=== PATIENT | female | born 1970 | race American Indian/Alaskan Native ===

== ENCOUNTER 2016-06-21 15:33 | Emergency (ER) | payer MEDICAID ==
[2016-06-21 15:54] VITALS: PULSE 61; RESP 18; TEMP 98.1; O2SAT 99
[2016-06-21 15:56] VITALS: BP 91/67
--- NOTE | 2016-06-21 17:15 | C.PDOC ---
History Of Present Illness 45-year-old female presents to the emergency department with complaints of right knee pain and swelling for the past several days. Pain radiates to lower leg. Patient has a Hx of chronic back pain and left knee pain w/ Hx of meniscal injury and DVT. Pt currently has IVC filter, but states she is not taking any blood thinners. Time Seen by Provider: 06/21/16 16:47 Chief Complaint (Nursing): Lower Extremity Problem/Injury History Per: Patient History/Exam Limitations: no limitations Current Symptoms Are (Timing): Still Present Severity: Moderate Past Medical History Reviewed: Historical Data, Nursing Documentation, Vital Signs Vital Signs: Last Vital Signs Temp 98.1 F 06/21/16 15:53 Pulse 61 06/21/16 15:53 Resp 18 06/21/16 15:53 BP 91/67 L 06/21/16 15:53 Pulse Ox 99 06/21/16 18:50 - Medical History PMH: Anemia, Deep Vein Thrombosis (left leg) Surgical History: Tonsillectomy - [facility] Procedures CYSTOSCOPY NEC (11/28/13) DESTRUCT PERITONEAL TISS (11/21/13) OTH REMOVE BOTH OVARIES/TUBES (11/21/13) OTHER AND UNSPECIFIED TOTAL ABDOMINAL HYSTERECTOMY (11/21/13) PACKED CELL TRANSFUSION (03/05/13) PLICATION OF VENA CAVA (03/05/13) REMOV URETERAL DRAIN (11/28/13) RETROGRADE PYELOGRAM (11/19/13) URETERAL CATHETERIZATION (11/19/13) Family History: States: No Known Family Hx - Social History Hx Alcohol Use: No Hx Substance Use: No - Immunization History Hx Tetanus Toxoid Vaccination: No Hx Influenza Vaccination: No Hx Pneumococcal Vaccination: No Review Of Systems Except As Marked, All Systems Reviewed And Found Negative. Constitutional: Negative for: Fever, Chills Cardiovascular: Negative for: Chest Pain Respiratory: Negative for: Shortness of Breath Gastrointestinal: Negative for: Nausea, Vomiting Musculoskeletal: Positive for: Other (knee pain) Skin: Negative for: Rash Neurological: Negative for: Weakness, Numbness Physical Exam - Physical Exam Appears: Well, Non-toxic, No Acute Distress Skin: Warm, Dry, No Rash Head: Normacephalic Eye(s): bilateral: Normal Inspection Oral Mucosa: Moist Neck: Normal, Normal ROM Cardiovascular: Rhythm Regular Respiratory: Normal Breath Sounds, No Rales, No Rhonchi, No Wheezing Extremity: No Calf Tenderness, Capillary Refill (< 2 sec all digits ), No Deformity, Other (Left Knee: (+)knee brace, Mild tenderness to palpation around patellar area. No swelling. No erythema. No warmth. No calf tenderness. ) Pulses: Left Dorsalis Pedis: Normal, Right Dorsalis Pedis: Normal Neurological/Psych: Oriented x3, Normal Sensation ED Course And Treatment O2 Sat by Pulse Oximetry: 99 (RA) Pulse Ox Interpretation: Normal Progress Note: Venous doppler no longer available at this time. Patient given 1 dose SC Lovenox and instructed to return in AM for venous doppler. Disposition Counseled Patient/Family Regarding: Studies Performed, Diagnosis, Need For Followup - Disposition Referrals: [facility] [Outside] Disposition: HOME/ ROUTINE Disposition Time: 17:40 Condition: STABLE Additional Instructions: RETURN TOMORROW FOR VENOUS DOPPLER (ULTRASOUND) OF RIGHT LEG Instructions: Knee Pain (ED) Print Language: TURKMEN - POA Present On Arrival: None - Clinical Impression Clinical Impression: Right knee pain - Scribe Statement The provider has reviewed the documentation as recorded by the Geo Newell All medical record entries made by the Siminibprosper were at my direction and personally dictated by me. I have reviewed the chart and agree that the record accurately reflects my personal performance of the history, physical exam, medical decision making, and the department course for this patient. I have also personally directed, reviewed, and agree with the discharge instructions and disposition.
[2016-06-21] MEDS ORDERED: Enoxaparin 80 mg Syringe SC STA (17:40)
[2016-06-21] MEDS ORDERED: Enoxaparin 60 mg Syringe ONE (17:51)
[2016-06-21] MEDS ORDERED: Enoxaparin 30 mg Syringe ONE (17:51)
== END 2016-06-21 18:17 | disposition home or self-care (01) ==
LOC: C.ER 15:33
DX: M25.561 Pain in right knee (principal)

== ENCOUNTER 2016-06-22 14:42 | Emergency (ER) | payer MEDICARE, MEDICAID ==
--- NOTE | 2016-06-22 15:41 | C.PDOC ---
History Of Present Illness 45 y/o F c PMHx DVT LLE s/p IVC filter p/w R leg swelling and pain mostly around the knee. Was seen and evaluated in this ER yesterday for same but arrived after doppler department closed. Given dose of lovenox and instructed to return to the ER today for doppler. Denies chest pain, dyspnea, fever. Time Seen by Provider: 06/22/16 15:31 Chief Complaint (Nursing): Lower Extremity Problem/Injury History Per: Patient History/Exam Limitations: no limitations Onset/Duration Of Symptoms: Days Current Symptoms Are (Timing): Still Present Past Medical History Reviewed: Historical Data, Nursing Documentation, Vital Signs Vital Signs: Last Vital Signs Temp 97.8 F 06/22/16 15:10 Pulse 66 06/22/16 15:10 Resp 18 06/22/16 15:10 BP 104/70 06/22/16 15:10 Pulse Ox 99 06/22/16 16:06 - Medical History PMH: Anemia, Deep Vein Thrombosis (left leg) Surgical History: Tonsillectomy - [facility] Procedures CYSTOSCOPY NEC (11/28/13) DESTRUCT PERITONEAL TISS (11/21/13) OTH REMOVE BOTH OVARIES/TUBES (11/21/13) OTHER AND UNSPECIFIED TOTAL ABDOMINAL HYSTERECTOMY (11/21/13) PACKED CELL TRANSFUSION (03/05/13) PLICATION OF VENA CAVA (03/05/13) REMOV URETERAL DRAIN (11/28/13) RETROGRADE PYELOGRAM (11/19/13) URETERAL CATHETERIZATION (11/19/13) Family History: States: No Known Family Hx - Social History Hx Alcohol Use: No Hx Substance Use: No - Immunization History Hx Tetanus Toxoid Vaccination: No Hx Influenza Vaccination: No Hx Pneumococcal Vaccination: No Review Of Systems Except As Marked, All Systems Reviewed And Found Negative. Constitutional: Negative for: Fever Cardiovascular: Negative for: Chest Pain Respiratory: Negative for: Shortness of Breath Physical Exam - Physical Exam Additional Physical Exam Comments: Constitutional: No acute distress. Head: Normocephalic. Atraumatic. Eyes: PERRL. ENT: Moist mucous membranes. Neck: Supple. Cardiovascular: Regular rate. Radial pulses 2+ bilaterally. Chest: No tenderness. Respiratory: Clear to auscultation bilaterally. GI: Soft. Nontender. Nondistended. Back: No CVA tenderness. Musculoskeletal: No tenderness of extremities. Swelling of R leg, mostly about R knee. No calf tenderness. Skin: No rash. Neurologic: Alert, no focal deficit. ED Course And Treatment O2 Sat by Pulse Oximetry: 99 Medical Decision Making Medical Decision Making: PLAN: * Doppler - Lower Extremity negative for DVT. F/u PMD, ortho for knee pain, return to ER for chest pain, dyspnea, fever. Disposition - Disposition Referrals: [facility] [Outside] Disposition: HOME/ ROUTINE Disposition Time: 16:30 Condition: STABLE Additional Instructions: Your venous doppler did NOT show a clot. Please follow up with your primary physician for your knee pain. Instructions: Knee Pain (ED) - Clinical Impression Clinical Impression: Knee pain - Scribe Statement The provider has reviewed the documentation as recorded by the Siminibprosper Webber Provider Attestation: All medical record entries made by the Siminibprosper were at my direction and personally dictated by me. I have reviewed the chart and agree that the record accurately reflects my personal performance of the history, physical exam, medical decision making, and the department course for this patient. I have also personally directed, reviewed, and agree with the discharge instructions and disposition.
[2016-06-22 16:55] VITALS: BP 108/63; PULSE 70; RESP 20; TEMP 98.3; O2SAT 100
--- NOTE | 2016-06-23 09:48 | VASCLAB ---
PROCEDURE: Right Lower Extremity Venous Duplex Exam. HISTORY: Right leg pain and swelling PRIORS: Last exam 10/07/2015,negative. TECHNIQUE: Right common femoral, femoral, popliteal and posterior tibial, peroneal and great saphenous veins were evaluated. Flow was assessed with color Doppler, compressibility, assessment of phasic flow and augmentation response. Report prepared by TAHIR Ernst FINDINGS: RIGHT: 1. Common Femoral Vein: 1.1. Compressibility - Fully compressible: Thrombus - None: Flow - Phasic: Augmentation -Normal: Reflux - None. 2. Femoral Vein: 2.1. Compressibility - Fully compressible: Thrombus - None: Flow - Phasic: Augmentation -Normal: Reflux - None. 3. Popliteal Vein: 3.1. Compressibility - Fully compressible: Thrombus - None: Flow - Phasic: Augmentation -Normal: Reflux - None. 4. Posterior Tibial Vein: 4.1. Compressibility - Fully compressible: Thrombus - None: Flow - Phasic: Augmentation -Normal: Reflux - None. 5. Peroneal Vein: 5.1. Compressibility - Fully compressible: Thrombus - None: Flow - Phasic: Augmentation -Normal: Reflux - None. 6. Great Saphenous Vein: 6.1. Compressibility - Fully compressible: Thrombus -None: Flow - Phasic: Augmentation - Normal: Reflux - None. OTHER FINDINGS: IMPRESSION: No evidence of deep or superficial vein thrombosis of the right lower extremity with excellent venous flow. Normal valve function noted of the right side. Normal venous flow noted in the left common femoral vein.
== END 2016-06-22 16:55 | disposition home or self-care (01) ==
LOC: C.ER 14:42
DX: M25.561 Pain in right knee (principal)

== ENCOUNTER 2016-07-06 14:42 | Emergency (ER) | payer MEDICAID ==
[2016-07-06 15:07] VITALS: RESP 18; O2SAT 99
[2016-07-06] MEDS ORDERED: Sodium Chloride 0.9% 1,000 ML IV ONE (15:42)
[2016-07-06 16:15] LABS: RBC URINE < 1 /hpf (0-3); URINE BILIRUBIN NEGATIVE (NEGATIVE); URINE BLOOD NEGATIVE (NEGATIVE); URINE CALCIUM OXALATE CRYSTALS OCC /hpf (<OCC); URINE COLOR Yellow (YELLOW); URINE GLUCOSE (UA) NORMAL (Normal); URINE HYALINE CAST 0-2 /lpf (0-2); URINE KETONE NEGATIVE (NEGATIVE); URINE LEUKOCYTE ESTERASE NEG Leu/uL (Negative); URINE PROTEIN NEGATIVE (NEGATIVE); URINE UROBILINOGEN NORMAL mg/dL (0.2-1.0); WBC URINE 1 /hpf (0-5)
[2016-07-06 16:18] LABS: BASO % 0.2 % (0.0-2.0); EOS % 0.5 % (0.0-4.0); HEMATOCRIT 35.4 % (34.0-47.0); LYMPH # 0.6 K/uL (1.0-4.3); LYMPH % 9.8 % (20.0-40.0); MEAN CELL VOLUME 89.5 fL (81.0-99.0); MEAN CORPUSCULAR HEMOGLOBIN 28.3 pg (27.0-31.0); MEAN CORPUSCULAR HGB CONC 31.6 g/dL (33.0-37.0); MEAN PLATELET VOLUME 12.1 fL (7.2-11.7); MONO # 0.3 K/uL (0.0-0.8); MONO % 3.9 % (0.0-10.0); PLATELET COUNT 148 K/uL (130-400); RED CELL DISTRIBUTION WIDTH 14.2 % (11.5-14.5); WHITE BLOOD COUNT 6.5 K/uL (4.8-10.8)
[2016-07-06 16:20] LABS: CHLORIDE 104 mmol/L (98-107)
[2016-07-06 16:21] LABS: POTASSIUM 3.9 mmol/L (3.6-5.2); SODIUM 141 mmol/L (132-148)
[2016-07-06] MEDS ORDERED: Sodium Chloride 0.9% 1,000 ML ONE (16:22)
[2016-07-06 16:23] LABS: ALB/GLOB RATIO 1.1 (1.0-2.1); ALKALINE PHOSPHATASE 55 U/L (38-126); AST/SGOT 18 U/L (14-36); BILIRUBIN,TOTAL 0.3 mg/dL (0.2-1.3); BLOOD UREA NITROGEN 11 mg/dL (7-17); CARBON DIOXIDE 23 mmol/L (22-30); GFR AFRICAN-AMERICAN > 60; TOTAL PROTEIN 7.8 g/dL (6.3-8.3)
[2016-07-06 16:24] LABS: ALT/SGPT 18 U/L (9-52); CALCIUM 9.6 mg/dl (8.6-10.4); GLUCOSE,RANDOM 87 mg/dL (65-105)
--- NOTE | 2016-07-06 16:35 | C.PDOC ---
History Of Present Illness 46 year old female presents to the ED with complaints of epigastric pain, nausea , and vomiting since this morning. She denies fever, chest pain, SOB, diarrhea , dysuria/hematuria, vaginal bleeding/discharge. Patient also denies unusual food intake or sick contacts. Time Seen by Provider: 07/06/16 15:15 Chief Complaint (Nursing): Abdominal Pain History Per: Patient History/Exam Limitations: no limitations Onset/Duration Of Symptoms: Hrs Current Symptoms Are (Timing): Still Present Severity: Mild Location Of Pain/Discomfort: Epigastric Radiation Of Pain To:: None Quality Of Discomfort: "Pain" Associated Symptoms: Nausea, Vomiting. denies: Fever, Chills, Diarrhea, Back Pain Abnormal Vaginal Bleeding: No Past Medical History Reviewed: Historical Data, Nursing Documentation, Vital Signs Vital Signs: Last Vital Signs Temp 98.6 F 07/06/16 17:58 Pulse 66 07/06/16 17:58 Resp 18 07/06/16 17:58 BP 109/71 07/06/16 17:58 Pulse Ox 99 07/06/16 17:58 - Medical History PMH: Anemia, Deep Vein Thrombosis (left leg) Surgical History: Tonsillectomy - [facility] Procedures CYSTOSCOPY NEC (11/28/13) DESTRUCT PERITONEAL TISS (11/21/13) OTH REMOVE BOTH OVARIES/TUBES (11/21/13) OTHER AND UNSPECIFIED TOTAL ABDOMINAL HYSTERECTOMY (11/21/13) PACKED CELL TRANSFUSION (03/05/13) PLICATION OF VENA CAVA (03/05/13) REMOV URETERAL DRAIN (11/28/13) RETROGRADE PYELOGRAM (11/19/13) URETERAL CATHETERIZATION (11/19/13) Family History: States: No Known Family Hx - Social History Hx Alcohol Use: No Hx Substance Use: No - Immunization History Hx Tetanus Toxoid Vaccination: No Hx Influenza Vaccination: No Hx Pneumococcal Vaccination: No Review Of Systems Except As Marked, All Systems Reviewed And Found Negative. Constitutional: Negative for: Fever, Chills Cardiovascular: Negative for: Chest Pain, Palpitations Respiratory: Negative for: Cough, Shortness of Breath Gastrointestinal: Positive for: Nausea, Vomiting, Abdominal Pain. Negative for : Diarrhea Genitourinary: Negative for: Dysuria, Hematuria, Vaginal Discharge, Vaginal Bleeding Musculoskeletal: Negative for: Back Pain Physical Exam - Physical Exam Appears: Well, Non-toxic, No Acute Distress Skin: Normal Color, Warm, Dry Head: Normacephalic Eye(s): bilateral: Normal Inspection Oral Mucosa: Moist Cardiovascular: Rhythm Regular Respiratory: Normal Breath Sounds, No Accessory Muscle Use, No Rales, No Rhonchi , No Wheezing Gastrointestinal/Abdominal: Normal Exam, Bowel Sounds, Soft, No Tenderness, No Distention, No Guarding, No Rebound Back: No CVA Tenderness Extremity: Normal ROM, No Deformity Neurological/Psych: Oriented x3 ED Course And Treatment - Laboratory Results Result Diagrams: 07/06/16 16:07 07/06/16 16:07 O2 Sat by Pulse Oximetry: 99 (Room air) Pulse Ox Interpretation: Normal Progress Note: Blood work, UA, Upreg ordered and reviewed. Patient given IV NS bolus, IV pepcid and IV zofran. Reevaluation Time: 17:40 Reassessment Condition: Improved (On reassessment, patient is resting comfortably and states she is feeling better. On exam, abdomen is soft and nontender. Patient comfortable being discharged home, was given Rxs for zofran ODT and protonix. Patient instructed to follow up with PMD in 1-2 days, and with GI within 1 week. She understands she should return to ED if symptoms worsen.) Disposition Counseled Patient/Family Regarding: Studies Performed, Diagnosis, Need For Followup, Rx Given - Disposition Referrals: [facility] [Outside] Chelly Gayle MD [Staff Provider] - [facility] [Outside] Disposition: HOME/ ROUTINE Disposition Time: 17:40 Condition: STABLE Additional Instructions: FOLLOW UP WITH GI SPECIALIST WITHIN 1 WEEK USE PROTONIX EVERY DAY, AND ZOFRAN NEEDED FOR NAUSEA RETURN TO ER IF SYMPTOMS WORSEN AVOID SPICY, ACIDIC FOODS Prescriptions: Pantoprazole [Protonix EC Tab] 20 mg PO DAILY #30 ect Ondansetron [Zofran Odt] 4 mg PO Q8 PRN #10 odt PRN Reason: Nausea/Vomiting Instructions: Epigastric Pain (ED), Acute Nausea and Vomiting (ED) Print Language: URDU - Clinical Impression Clinical Impression: Nausea, Vomiting, Epigastric abdominal pain, Dyspepsia - Scribe Statement The provider has reviewed the documentation as recorded by the Scribe Doris Rocha. Provider Attestation: All medical record entries made by the Scribe were at my direction and personally dictated by me. I have reviewed the chart and agree that the record accurately reflects my personal performance of the history, physical exam, medical decision making, and the department course for this patient. I have also personally directed, reviewed, and agree with the discharge instructions and disposition.
[2016-07-06 17:59] VITALS: BP 109/71; PULSE 66; TEMP 98.6
[2016-07-06 18:25] LABS: NEUTROPHIL 85 % (50-75); TOTAL CELLS COUNTED 100
[2016-07-06 18:26] LABS: LARGE PLATELETS PRESENT; SMUDGE CELLS PRESENT
== END 2016-07-06 17:55 | disposition home or self-care (01) ==
LOC: C.ER 14:42
DX: R10.13 Epigastric pain (principal); R11.2 Nausea with vomiting, unspecified
CPT/HCPCS: 80053; 81001; 83690; 84703; 85025; 96361; 96374; 96375; 99284; J2405; J7040

== ENCOUNTER 2016-07-20 14:43 | Emergency (ER) | payer MEDICAID ==
[2016-07-20 15:02] VITALS: RESP 18; O2SAT 100
--- NOTE | 2016-07-20 15:54 | C.PDOC ---
History Of Present Illness Pt is a 46 year old female presents to the ER c/o wanting to remove a IVC filter placed in 2012. Patient states that since February of 2013 (after IVC filter placed) she has been having lower back pain, lower abdominal pain, loss of appetite, and vomiting. Patient notes pain is worse with movement. Patient states "Dr. Casillas won't take it out, someone has to take the IVC filter out" . Patient denies , fever, chills, nausea, trauma, dysuria, hematuria vaginal bleeding or discharge, or any other complaints. No chest pain and no SOB. Prior to IVC filter placement, the pt had been taking PO blood thinners but notes not being able to take it because of loss of appetite. Pt states that she has not contacted Dr. Casillas this year for her symptoms. On once occasion, she had an appointment to have the IVC filtered removed by Dr. Casillas, but she did not show up to her scheduled appointment (because of a transportation issues)--so the procedure was not done at that time. Time Seen by Provider: 07/20/16 15:11 Chief Complaint (Nursing): Abdominal Pain History Per: Patient History/Exam Limitations: no limitations Onset/Duration Of Symptoms: Days Current Symptoms Are (Timing): Still Present Severity: Mild Location Of Pain/Discomfort: RLQ, LLQ Associated Symptoms: Vomiting, Loss Of Appetite. denies: Fever, Chills, Nausea , Urinary Symptoms Recent travel outside of the [place]: No Additional History Per: Patient Past Medical History Reviewed: Historical Data, Nursing Documentation, Vital Signs Vital Signs: Last Vital Signs Temp 98.7 F 07/20/16 14:58 Pulse 96 H 07/20/16 14:58 Resp 18 07/20/16 14:58 BP 109/78 07/20/16 14:58 Pulse Ox 100 07/20/16 17:59 - Medical History PMH: Anemia, Deep Vein Thrombosis (left leg) Surgical History: Tonsillectomy - [facility] Procedures CYSTOSCOPY NEC (11/28/13) DESTRUCT PERITONEAL TISS (11/21/13) OTH REMOVE BOTH OVARIES/TUBES (11/21/13) OTHER AND UNSPECIFIED TOTAL ABDOMINAL HYSTERECTOMY (11/21/13) PACKED CELL TRANSFUSION (03/05/13) PLICATION OF VENA CAVA (03/05/13) REMOV URETERAL DRAIN (11/28/13) RETROGRADE PYELOGRAM (11/19/13) URETERAL CATHETERIZATION (11/19/13) Family History: States: Diabetes - Social History Hx Tobacco Use: No Hx Alcohol Use: No Hx Substance Use: No - Immunization History Hx Tetanus Toxoid Vaccination: No Hx Influenza Vaccination: No Hx Pneumococcal Vaccination: No Review Of Systems Except As Marked, All Systems Reviewed And Found Negative. Constitutional: Negative for: Fever, Chills, Other (Trauma) Gastrointestinal: Positive for: Vomiting, Abdominal Pain (Lower abdominal). Negative for: Nausea Genitourinary: Negative for: Dysuria, Hematuria, Vaginal Discharge, Vaginal Bleeding Musculoskeletal: Positive for: Back Pain (Lower back) Physical Exam - Physical Exam Appears: Well, Non-toxic, No Acute Distress Skin: Warm, Dry Head: Atraumatic, Normacephalic Eye(s): bilateral: Normal Inspection, EOMI Ear(s): Bilateral: Normal Nose: Normal Oral Mucosa: Moist Tongue: Normal Appearing Lips: Normal Appearing Throat: Normal Neck: Normal Chest: Symmetrical Cardiovascular: Rhythm Regular, No Murmur Respiratory: Normal Breath Sounds, No Rales, No Rhonchi, No Wheezing Gastrointestinal/Abdominal: Normal Exam, Bowel Sounds, Soft, No Tenderness, No Guarding, No Rebound Rectal: Deferred Back: Normal Inspection Extremity: Normal ROM Extremity: Bilateral: Atraumatic, Normal ROM Neurological/Psych: Oriented x3, Normal Speech, Normal Cognition ED Course And Treatment - Laboratory Results Result Diagrams: 07/20/16 16:20 07/20/16 16:20 O2 Sat by Pulse Oximetry: 100 (Room air) Pulse Ox Interpretation: Normal Medical Decision Making Medical Decision Making: Initial Impression: Presence of IVC Filter (With concern of side effects from IVC filter placement) Initial Plan: I spoke to Dr. Casillas. He states he will be happy to see the patient in his office and make necessary plans to remove the IVC filter. Progress Note(s): 6:16 PM -- I explained to the patient that Dr. Casillas is expecting her phone call and to call his office to arrange follow up surgery to potentially remove the IVC. Disposition Counseled Patient/Family Regarding: Studies Performed, Diagnosis, Need For Followup - Disposition Referrals: Justin Casillas Jr., MD [Staff Provider] - Disposition Time: 18:17 Condition: STABLE Additional Instructions: Ms. Medina, thank you for letting us take care of you today. Return to the ER if your symptoms worsen, or if any problems. Take the medication listed below as prescribed. Call Dr. Casillas's office at the phone number listed below to make a follow up appointment with him at his office. He is expecting you to call him. Prescriptions: Ondansetron ODT [Zofran ODT] 1 odt PO BID PRN #6 odt PRN Reason: Nausea/Vomiting traMADol [Ultram] 1 tab PO BID PRN #10 tab PRN Reason: Pain, Moderate (4-7) Forms: General Discharge Instructions Print Language: TURKMEN - Clinical Impression Clinical Impression: Presence of IVC filter - Scribe Statement The provider has reviewed the documentation as recorded by the Scribe Ze nichole All medical record entries made by the Siminibe were at my direction and personally dictated by me. I have reviewed the chart and agree that the record accurately reflects my personal performance of the history, physical exam, medical decision making, and the department course for this patient. I have also personally directed, reviewed, and agree with the discharge instructions and disposition.
[2016-07-20 16:28] LABS: BASO % 0.3 % (0.0-2.0); EOS % 0.2 % (0.0-4.0); HEMATOCRIT 33.9 % (34.0-47.0); LYMPH # 0.9 K/uL (1.0-4.3); LYMPH % 10.7 % (20.0-40.0); MEAN CELL VOLUME 87.7 fL (81.0-99.0); MEAN CORPUSCULAR HEMOGLOBIN 28.3 pg (27.0-31.0); MEAN CORPUSCULAR HGB CONC 32.3 g/dL (33.0-37.0); MEAN PLATELET VOLUME 11.2 fL (7.2-11.7); MONO # 0.4 K/uL (0.0-0.8); RED CELL DISTRIBUTION WIDTH 14.4 % (11.5-14.5); WHITE BLOOD COUNT 8.1 K/uL (4.8-10.8)
[2016-07-20 16:33] LABS: SODIUM 140 mmol/L (132-148)
[2016-07-20 16:34] LABS: POTASSIUM 3.8 mmol/L (3.6-5.2)
[2016-07-20 16:35] LABS: GFR AFRICAN-AMERICAN > 60
[2016-07-20 16:36] LABS: ALB/GLOB RATIO 1.1 (1.0-2.1); ALKALINE PHOSPHATASE 52 U/L (38-126); ALT/SGPT 16 U/L (9-52); AST/SGOT 20 U/L (14-36); BILIRUBIN,TOTAL 0.7 mg/dL (0.2-1.3); BLOOD UREA NITROGEN 15 mg/dL (7-17); CALCIUM 9.7 mg/dl (8.6-10.4); CARBON DIOXIDE 25 mmol/L (22-30); GLUCOSE,RANDOM 95 mg/dL (65-105); TOTAL PROTEIN 7.9 g/dL (6.3-8.3)
--- NOTE | 2016-07-20 16:43 | RAD ---
HISTORY: abd pain--states her IVC filter is irritating her COMPARISON: No prior. FINDINGS: BOWEL: Nonobstructive bowel gas pattern. No definite free air. Mild constipation. BONES: No acute osseous abnormality is detected. OTHER FINDINGS: IVC filter at the L1 -L3 level. 3.0 x 1.7 cm density projects over left lower quadrant, possibly external to the patient; correlate clinically. IMPRESSION: IVC filter. 3.0 x 1.7 cm density projects over left lower quadrant, possibly external to the patient; correlate clinically.
[2016-07-20 17:14] LABS: RBC URINE 4 /hpf (0-3); URINE BACTERIA RARE (<OCC); URINE BILIRUBIN NEGATIVE (NEGATIVE); URINE BLOOD NEGATIVE (NEGATIVE); URINE COLOR Yellow (YELLOW); URINE GLUCOSE (UA) NORMAL (Normal); URINE KETONE 2+ mg/dL (NEGATIVE); URINE LEUKOCYTE ESTERASE NEG Leu/uL (Negative); URINE PROTEIN 1+ mg/dL (NEGATIVE); URINE UROBILINOGEN NORMAL mg/dL (0.2-1.0); WBC URINE 3 /hpf (0-5)
[2016-07-20] MEDS ORDERED: Sodium Chloride 0.9% 1,000 ML IV ONE (17:50)
[2016-07-20 18:58] VITALS: BP 109/72; PULSE 84; TEMP 98.2
--- NOTE | 2016-07-21 17:09 | CARD ---
APPROVED REPORT EKG Measurement Heart [id number] <Conclusion> Normal sinus rhythm Right atrial enlargement Moderate voltage criteria for LVH, may be normal variant Borderline ECG
[2016-07-21 17:31] LABS: CHLORIDE 100 mmol/L (98-107)
== END 2016-07-20 19:20 | disposition home or self-care (01) ==
LOC: C.ER 14:43
DX: R10.31 Right lower quadrant pain (principal); Z95.828 Presence of other vascular implants and grafts
CPT/HCPCS: 74000; 80053; 81001; 83690; 85025; 93005; 96360; 99285; J7040

== ENCOUNTER 2016-08-07 06:20 | Day surgery (SDC) | payer MEDICARE, MEDICAID ==
[2016-08-07] MEDS ORDERED: Midazolam 2 MG/2 ML VIAL ONE (09:57)
[2016-08-07] MEDS ORDERED: Propofol 10 mg/ml Inj (20 ML) ONE (09:58)
[2016-08-07] MEDS ORDERED: Iodixanol 320 MG/ML 200 ML BOTTLE IV ONE (10:29)
[2016-08-07] MEDS ORDERED: Lidocaine 2% Inj (20ml) ONE (10:29)
[2016-08-07] MEDS ORDERED: Heparin 1,000 Units/500 ml NS IV ONE (10:29)
--- NOTE | 2016-08-07 11:44 | PCM.SURG1 ---
Surgeon's Initial Post Op Note - Surgeon's Notes Surgeon: jeff Medicinal Plant Picker: 0 Type of Anesthesia: IV Sedation Anesthesia Administered By: claudia Pre-Operative Diagnosis: uneeded ivc filter Operative Findings: unable to remove filter Post-Operative Diagnosis: same Operation Performed: attempted removal of ivc filter Specimen/Specimens Removed: 0 Estimated Blood Loss: EBL {In ML}: 5 Blood Products Given: N/A Drains Used: No Drains Post-Op Condition: Good Date of Surgery/Procedure: 08/07/16 Time of Surgery/Procedure: 11:44
--- NOTE | 2016-08-07 12:44 | RAD ---
HISTORY: r/o ptx COMPARISON: 12/07/2015 FINDINGS: LUNGS: Mild venous congestion PLEURA: No significant pleural effusion identified, no pneumothorax apparent. CARDIOVASCULAR: Normal. OSSEOUS STRUCTURES: No significant abnormalities. VISUALIZED UPPER ABDOMEN: Normal. OTHER FINDINGS: None. IMPRESSION: Mild venous congestion.
[2016-08-07 13:09] VITALS: O2SAT 100
[2016-08-07 14:48] VITALS: RESP 20
[2016-08-07 15:04] VITALS: BP 107/68; PULSE 83; TEMP 97.8
--- NOTE | 2016-08-07 21:43 | OP ---
PROCEDURE DATE: 08/07/2016 PREOPERATIVE DIAGNOSIS: Unnecessary intravascular device, vena cava filter. PROCEDURE CARRIED OUT: Attempted removal of Bard Juana Diaz removable filter via right jugular vein with C-arm fluoroscopy, ultrasound-guided puncture and venacavogram. SURGEON: Justin Casillas MD GATEKEEPER: None. ANESTHESIOLOGIST: Mr. Garcia INDICATIONS: The patient is a 46-year-old woman who previously had a filter placed. Recent imaging has shown that the filter is slightly tilted to the left with being into the left renal vein. OPERATIVE FINDINGS: Five times, we were able to lasso the root of the hook. We were unable to final ly complete our snaring of the hook and unable to advance the sheath over this to capture it, despite multiple events and multiple times. We then terminated the procedure after the fifth snaring and wi th unsuccessful removal. Pressure was then applied to the neck. PROCEDURE: The patient was given local anesthesia. Using ultrasound guidance and micropuncture tech nique, the right jugular vein was punctured. Under fluoroscopic control, a 5-Tajik sheath and an Am margo wire was inserted to the inferior vena cava and right iliac vein. Over this, we then advanced the retrieval system. We were able, as they say, to hook this 5 times, but we were unable to advance the sheath down this to remove it. The procedure was then terminated. Pressure was applied to the site. Other arrangements will be made for removal. OPERATION CARRIED OUT: Attempted removal of Bard Criselda removable filter with venacavogram and inser tion of wire into vena cava. Justin Casillas Jr., MD cc: [id number] TT: 08/07/2016 13:32:06 en 08/07/2016 20:42:40
== END 2016-08-07 16:24 | disposition home or self-care (01) ==
LOC: C.SDS 06:20
PROVIDERS: ATTEND Surgery Vascular Surgery
DX: Z45.2 Encounter for adjustment and management of vascular access device (principal); Z95.828 Presence of other vascular implants and grafts
CPT/HCPCS: 36010; 71010; 75825; 76937; 94770; C1766; C1769; J2250; J2704; J3010

== ENCOUNTER 2017-06-02 20:55 | Inpatient (IN) | payer MEDICAID, MEDICARE ==
[2017-06-02] MEDS ORDERED: Sodium Chloride 0.9% 1,000 ML IV ONE (21:17)
--- NOTE | 2017-06-02 21:19 | C.PDOC ---
History Of Present Illness 46 yo female, presetns with vomiting blood. states she was eating milk an dcookies and then vomited "a lot of blood". no fevers, mild epigastric pain, no vomiting, no diarrhea. no blood in stool. refuses rectal exam. Time Seen by Provider: 06/02/17 21:05 Chief Complaint (Nursing): Abdominal Pain Past Medical History Reviewed: Historical Data, Nursing Documentation, Vital Signs Vital Signs: Last Vital Signs Temp 97.8 F 06/03/17 08:54 Pulse 62 06/03/17 08:54 Resp 20 06/03/17 08:54 BP 114/72 06/03/17 08:54 Pulse Ox 97 06/03/17 08:54 - Medical History PMH: Anemia, Deep Vein Thrombosis (left leg), Peripheral Edema (2012 NO LONGER) Denies: Chronic Kidney Disease Surgical History: Tonsillectomy - [facility] Procedures CYSTOSCOPY NEC (11/28/13) DESTRUCT PERITONEAL TISS (11/21/13) OTH REMOVE BOTH OVARIES/TUBES (11/21/13) OTHER AND UNSPECIFIED TOTAL ABDOMINAL HYSTERECTOMY (11/21/13) PACKED CELL TRANSFUSION (03/05/13) PLICATION OF VENA CAVA (03/05/13) REMOV URETERAL DRAIN (11/28/13) RETROGRADE PYELOGRAM (11/19/13) URETERAL CATHETERIZATION (11/19/13) Family History: States: Unknown Family Hx, Diabetes - Social History Hx Tobacco Use: No Hx Alcohol Use: No Hx Substance Use: No - Immunization History Hx Tetanus Toxoid Vaccination: No Hx Influenza Vaccination: No Hx Pneumococcal Vaccination: No Review Of Systems Gastrointestinal: Positive for: Nausea, Vomiting, Abdominal Pain, Hematemesis. Negative for: Melena, Hematochezia Physical Exam - Physical Exam Appears: Well, No Acute Distress Skin: Normal Color, Warm, Dry Eye(s): bilateral: Normal Inspection, PERRL, EOMI Nose: Normal Throat: Normal Neck: Normal Cardiovascular: Rhythm Regular Respiratory: Normal Breath Sounds Gastrointestinal/Abdominal: Normal Exam, Soft, Tenderness (epgiastric), No Guarding, No Rebound Back: Normal Inspection Extremity: Normal ROM ED Course And Treatment - Laboratory Results Result Diagrams: 06/03/17 09:00 06/03/17 09:00 O2 Sat by Pulse Oximetry: 98 Disposition - Disposition Disposition: HOSPITALIZED Disposition Time: 11:00 Condition: STABLE - Clinical Impression Clinical Impression: GI bleed Decision To Admit - Pt Status Changed To: Hospital Disposition Of: Inpatient - Admit Certification Admit to Inpatient:: After my assessment, the patient will require hospitalization for at least two midnights. This is because of the severity of symptoms shown, intensity of services needed, and/or the medical risk in this patient being treated as an outpatient. - InPatient: Physician Admission Certification:: pt with gi bleed - . Bed Request Type: Telemetry Admitting Physician: Jorge Brumfield Patient Diagnosis: GI bleed
[2017-06-02] MEDS ORDERED: Sodium Chloride 0.9% 1,000 ML ONE (21:47)
[2017-06-02 21:48] LABS: BASO % 0.3 % (0.0-2.0); EOS # 0.1 K/uL (0.0-0.7); EOS % 1.3 % (0.0-4.0); HEMOGLOBIN 12.7 g/dL (11.0-16.0); LYMPH # 1.4 K/uL (1.0-4.3); LYMPH % 26.9 % (20.0-40.0); MEAN CELL VOLUME 89.3 fL (81.0-99.0); MEAN CORPUSCULAR HEMOGLOBIN 29.7 pg (27.0-31.0); MEAN CORPUSCULAR HGB CONC 33.2 g/dL (33.0-37.0); MEAN PLATELET VOLUME 11.2 fL (7.2-11.7); MONO # 0.4 K/uL (0.0-0.8); MONO % 6.9 % (0.0-10.0); NEUT # 3.3 K/uL (1.8-7.0); NEUT % 64.6 % (50.0-75.0); NRBC % 0.1 % (0.0-2.0); RBC 4.28 Mil/uL (3.80-5.20); RED CELL DISTRIBUTION WIDTH 13.3 % (11.5-14.5); WHITE BLOOD COUNT 5.1 K/uL (4.8-10.8)
[2017-06-02 21:54] LABS: INR 1.1; PROTHROMBIN TIME 12.7 SECONDS (9.7-12.2)
[2017-06-02 21:59] LABS: ALBUMIN 4.1 g/dL (3.5-5.0); ALT/SGPT 22 U/L (9-52); AST/SGOT 22 U/L (14-36); BLOOD UREA NITROGEN 8 mg/dL (7-17); CALCIUM 9.5 mg/dl (8.6-10.4); GFR AFRICAN-AMERICAN > 60; GFR NON-AFRICAN AMERICAN > 60; LIPASE 64 U/L (23-300)
[2017-06-02 22:02] LABS: SQUAMOUS EPITHIAL 9 /hpf (0-5); URINE BACTERIA OCC (<OCC); URINE BILIRUBIN NEGATIVE (NEGATIVE); URINE BLOOD NEGATIVE (NEGATIVE); URINE CLARITY Hazy (Clear); URINE COLOR Yellow (YELLOW); URINE GLUCOSE (UA) NORMAL (Normal); URINE LEUKOCYTE ESTERASE NEG Leu/uL (Negative); URINE PROTEIN 1+ mg/dL (NEGATIVE); URINE UROBILINOGEN NORMAL mg/dL (0.2-1.0)
[2017-06-02 22:03] LABS: HCG,QUALITATIVE URINE NEGATIVE (NEGATIVE)
[2017-06-02] MEDS ORDERED: Pantoprazole 80 MG in Sodium Chloride 0.9% 100 ML IVP ONE (22:15)
[2017-06-02] MEDS ORDERED: Pantoprazole 80 MG in Sodium Chloride 0.9% 100 ML IVP SCH (22:15)
[2017-06-02] MEDS: Pantoprazole 80 MG in Sodium Chloride 0.9% 100 ML IVP SCH (22:18)
--- NOTE | 2017-06-02 23:34 | CP.PCM.HP ---
<Leana Yates - Last Filed: 06/03/17 04:32> History of Present Illness - History of Present Illness History of Present Illness: HPI: Patient is a 46 year old female with a past medical history of anemia, DVT of left LE, torn meniscus, who presents to the ED with complaints of vomiting/ coughing up blood. Patient ate cereal, milk and cookies this morning; she then had abdominal pain, starting coughing up blood tinged clear sputum, followed by two episodes of non-bloody vomit. She reports the amount of blood she coughed up was "a lot and with clots", which is why she came to the ED. She denies blood in her vomit. The patient also states she has not had a bowel movement today, which is abnormal for her as she has normal bowel movements daily. Patient denies chest pain, shortness of breath, palpitations, nausea, vomiting, fevers, headaches, dizziness, recent sick contacts/illnesses, easy bruising, hematochezia, melena. PMD: Dr. Wright PMHx: anemia, DVT of left LE (2013), left torn meniscus (wears brace) SurgHx: IVC filter [place] [address] Casillas. Removal of IVC filter because it was causing pain. Hysterectomy 2013 FamHx: denies SocHx: denies tobacco, alcohol, drug use; unemployed, on disability; lives in [place]. Allergies: NKDA Medications: tylenol prn, multivitamins (previously took feosol in 2012; stopped because anemia resolved) Present on Admission - Present on Admission Any Indicators Present on Admission: No Review of Systems - Constitutional Constitutional: absent: Chills, Fever, Headache, Weakness - EENT Eyes: absent: Change in Vision Ears: absent: Dizziness - Cardiovascular Cardiovascular: absent: Chest Pain, Dyspnea, Leg Edema, Lightheadedness, Palpitations - Respiratory Respiratory: Cough, Hemoptysis. absent: Dyspnea - Gastrointestinal Gastrointestinal: Abdominal Pain (diffuse), Vomiting. absent: Constipation, Diarrhea, Hematochezia, Melena, Nausea - Genitourinary Genitourinary: absent: Dysuria, Hematuria, Urinary Frequency - Musculoskeletal Musculoskeletal: Abnormal Gait (walks with left leg brace and cane due to torn meniscus) - Neurological Neurological: absent: Dizziness, Headaches, Weakness - Endocrine Endocrine: absent: Palpitations - Hematologic/Lymphatic Hematologic: absent: Easy Bleeding, Easy Bruising Past Patient History - Infectious Disease Hx of Infectious Diseases: None - Past Medical History & Family History Past Medical History?: Yes - Past Social History Smoking Status: Never Smoked - CARDIAC Hx Peripheral Edema: Yes (2012 NO LONGER) - PULMONARY Hx Respiratory Disorders: No - NEUROLOGICAL Hx Neurological Disorder: No - HEENT Hx HEENT Problems: No - RENAL Hx Chronic Kidney Disease: No - ENDOCRINE/METABOLIC Hx Endocrine Disorders: No - HEMATOLOGICAL/ONCOLOGICAL Hx Anemia: Yes - INTEGUMENTARY Hx Dermatological Problems: No - MUSCULOSKELETAL/RHEUMATOLOGICAL Hx Musculoskeletal Disorders: No - GASTROINTESTINAL Hx Gastrointestinal Disorders: Yes (NAUSEA VOMITTING) Other/Comment: CONSTIPATION - GENITOURINARY/GYNECOLOGICAL Hx Genitourinary Disorders: No - PSYCHIATRIC Hx Substance Use: No - SURGICAL HISTORY Hx Tonsillectomy: Yes - ANESTHESIA Hx Anesthesia: Yes Hx Anesthesia Reactions: No Hx Malignant Hyperthermia: No Meds Allergies/Adverse Reactions: Allergies Allergy/AdvReac Type Severity Reaction Status Date / Time No Known Allergies Allergy Verified 06/02/17 21:03 Physical Exam - Head Exam Head Exam: absent: ATRAUMATIC, NORMAL INSPECTION - Eye Exam Eye Exam: EOMI, Normal appearance, PERRL - ENT Exam ENT Exam: Mucous Membranes Moist - Neck Exam Neck exam: Positive for: Normal Inspection. Negative for: Tenderness - Respiratory Exam Respiratory Exam: Clear to Auscultation Bilateral, NORMAL BREATHING PATTERN. absent: Rhonchi, Wheezes, Respiratory Distress - Cardiovascular Exam Cardiovascular Exam: REGULAR RHYTHM, +S1, +S2 - GI/Abdominal Exam GI & Abdominal Exam: Normal Bowel Sounds, Soft, Tenderness (diffuse). absent: Distended, Firm, Guarding, Mass, Rigid - Rectal Exam Rectal Exam: Deferred (patient declined and said she would think about reconsidering) - Extremities Exam Extremities exam: Positive for: full ROM (RLE; decreased ROM of Left LE 2/2 to pain from torn meniscus), pedal edema (mild pitting edema b/l), pedal pulses present. Negative for: calf tenderness, tenderness - Neurological Exam Neurological exam: Alert, Oriented x3 - Skin Skin Exam: Dry, Intact, Normal Color, Warm Results - Vital Signs Recent Vital Signs: Last Vital Signs Temp 97.9 F 06/02/17 20:58 Pulse 60 06/02/17 22:25 Resp 22 06/02/17 22:25 BP 105/79 06/02/17 22:25 Pulse Ox 99 06/02/17 22:25 - Labs Result Diagrams: 06/02/17 21:43 06/02/17 21:43 Labs: Laboratory Results - last 24 hr 06/02/17 06/02/17 06/02/17 21:43 21:43 21:43 WBC 5.1 RBC 4.28 Hgb 12.7 Hct 38.2 MCV 89.3 MCH 29.7 MCHC 33.2 RDW 13.3 Plt Count 125 L D MPV 11.2 Neut % (Auto) 64.6 Lymph % (Auto) 26.9 Harrison % (Auto) 6.9 Eos % (Auto) 1.3 Baso % (Auto) 0.3 Neut # (Auto) 3.3 Lymph # (Auto) 1.4 Harrison # (Auto) 0.4 Eos # (Auto) 0.1 Baso # (Auto) 0.0 Differential Comment PT 12.7 H INR 1.1 APTT 34 Sodium Potassium Chloride Carbon Dioxide Anion Gap BUN Creatinine Est GFR ( Amer) Est GFR (Non-Af Amer) Random Glucose Calcium Total Bilirubin AST ALT Alkaline Phosphatase Total Protein Albumin Globulin Albumin/Globulin Ratio Lipase Urine Color Yellow Urine Clarity Hazy Urine pH 6.0 Ur Specific Stokes 1.028 Urine Protein 1+ H Urine Glucose (UA) Normal Urine Ketones Trace Urine Blood Negative Urine Nitrate Negative Urine Bilirubin Negative Urine Urobilinogen Normal Ur Leukocyte Esterase Neg Urine WBC (Auto) 1 Urine RBC (Auto) 2 Ur Squamous Epith Cells 9 H Urine Bacteria Occ H Urine HCG, Qual Negative Blood Type Antibody Screen 06/02/17 06/02/17 21:43 21:43 WBC RBC Hgb Hct MCV MCH MCHC RDW Plt Count MPV Neut % (Auto) Lymph % (Auto) Harrison % (Auto) Eos % (Auto) Baso % (Auto) Neut # (Auto) Lymph # (Auto) Harrison # (Auto) Eos # (Auto) Baso # (Auto) Differential Comment PT INR APTT Sodium 141 Potassium 3.7 Chloride 104 Carbon Dioxide 26 Anion Gap 16 BUN 8 Creatinine 0.8 Est GFR ( Amer) > 60 Est GFR (Non-Af Amer) > 60 Random Glucose 102 Calcium 9.5 Total Bilirubin 0.4 AST 22 ALT 22 Alkaline Phosphatase 47 Total Protein 8.3 Albumin 4.1 Globulin 4.2 H Albumin/Globulin Ratio 1.0 Lipase 64 Urine Color Urine Clarity Urine pH Ur Specific Stokes Urine Protein Urine Glucose (UA) Urine Ketones Urine Blood Urine Nitrate Urine Bilirubin Urine Urobilinogen Ur Leukocyte Esterase Urine WBC (Auto) Urine RBC (Auto) Ur Squamous Epith Cells Urine Bacteria Urine HCG, Qual Blood Type O POSITIVE Antibody Screen Negative Assessment & Plan (1) GI bleed Assessment and Plan: Hemoptysis, Hematemesis Hgb/Hct currently stable--> continue to monitor Type and screen Stool occult ordered GI consulted, Dr. Nuñez; help appreciated NPO Protonix Drip Zofran 4mg IV prn for nausea/vomiting Status: Acute (2) History of torn meniscus of left knee Assessment and Plan: Patient wears brace for torn meniscus. Injury occurred in 2012. Status: Acute (3) Hx of deep venous thrombosis Assessment and Plan: Hx of DVT in left LE in 2012. Patient had IVC filter placed by Dr. Casillas in 2012; however, filter was causing discomfort and patient had it removed 10/16/16. Status: Acute (4) Prophylactic measure Assessment and Plan: DVT: SCDs; chemical anticoagulation C/I due to gi bleed, thrombocytopenia GI: Protonix drip NPO Status: Acute <Jorge Brumfield - Last Filed: 06/03/17 06:37> Results - Vital Signs Recent Vital Signs: Last Vital Signs Temp 97.8 F 06/03/17 01:08 Pulse 66 06/03/17 01:08 Resp 20 06/03/17 01:08 BP 112/71 06/03/17 01:08 Pulse Ox 97 06/03/17 01:08 - Labs Result Diagrams: 06/02/17 21:43 06/02/17 21:43 Labs: Laboratory Results - last 24 hr 06/02/17 06/02/17 06/02/17 21:43 21:43 21:43 WBC 5.1 RBC 4.28 Hgb 12.7 Hct 38.2 MCV 89.3 MCH 29.7 MCHC 33.2 RDW 13.3 Plt Count 125 L D MPV 11.2 Neut % (Auto) 64.6 Lymph % (Auto) 26.9 Harrison % (Auto) 6.9 Eos % (Auto) 1.3 Baso % (Auto) 0.3 Neut # (Auto) 3.3 Lymph # (Auto) 1.4 Harrison # (Auto) 0.4 Eos # (Auto) 0.1 Baso # (Auto) 0.0 Differential Comment PT 12.7 H INR 1.1 APTT 34 Sodium Potassium Chloride Carbon Dioxide Anion Gap BUN Creatinine Est GFR ( Amer) Est GFR (Non-Af Amer) Random Glucose Calcium Total Bilirubin AST ALT Alkaline Phosphatase Total Protein Albumin Globulin Albumin/Globulin Ratio Lipase Urine Color Yellow Urine Clarity Hazy Urine pH 6.0 Ur Specific Stokes 1.028 Urine Protein 1+ H Urine Glucose (UA) Normal Urine Ketones Trace Urine Blood Negative Urine Nitrate Negative Urine Bilirubin Negative Urine Urobilinogen Normal Ur Leukocyte Esterase Neg Urine WBC (Auto) 1 Urine RBC (Auto) 2 Ur Squamous Epith Cells 9 H Urine Bacteria Occ H Urine HCG, Qual Negative Blood Type Antibody Screen 06/02/17 06/02/17 21:43 21:43 WBC RBC Hgb Hct MCV MCH MCHC RDW Plt Count MPV Neut % (Auto) Lymph % (Auto) Harrison % (Auto) Eos % (Auto) Baso % (Auto) Neut # (Auto) Lymph # (Auto) Harrison # (Auto) Eos # (Auto) Baso # (Auto) Differential Comment PT INR APTT Sodium 141 Potassium 3.7 Chloride 104 Carbon Dioxide 26 Anion Gap 16 BUN 8 Creatinine 0.8 Est GFR ( Amer) > 60 Est GFR (Non-Af Amer) > 60 Random Glucose 102 Calcium 9.5 Total Bilirubin 0.4 AST 22 ALT 22 Alkaline Phosphatase 47 Total Protein 8.3 Albumin 4.1 Globulin 4.2 H Albumin/Globulin Ratio 1.0 Lipase 64 Urine Color Urine Clarity Urine pH Ur Specific Stokes Urine Protein Urine Glucose (UA) Urine Ketones Urine Blood Urine Nitrate Urine Bilirubin Urine Urobilinogen Ur Leukocyte Esterase Urine WBC (Auto) Urine RBC (Auto) Ur Squamous Epith Cells Urine Bacteria Urine HCG, Qual Blood Type O POSITIVE Antibody Screen Negative Assessment & Plan - Date & Time Date: 06/03/17 (I have seen and examined the patient. I agree with the findings and plan of care as documented by Dr. Yates. Patient with GI bleed. Check Stool for occult blood. Hemodynamically stable. Follow CBC. History of DVT. Not on anticoagulation. IVC filter removed. SCDs for now. Protonix drip. Monitor for acute changes.) Time: 06:34 Attending/Attestation - Attestation I have personally seen and examined this patient.: Yes I have fully participated in the care of the patient.: Yes I have reviewed all pertinent clinical information: Yes
[2017-06-03] MEDS: Sodium Chloride 0.9% 1,000 ML IV SCH ×4 (00:09→22:57)
[2017-06-03] MEDS: Pantoprazole 80 MG in Sodium Chloride 0.9% 100 ML IVP SCH ×2 (06:45→09:58)
--- NOTE | 2017-06-03 08:55 | RAD ---
HISTORY: baseline chest xray COMPARISON: 08/07/2016 FINDINGS: LUNGS: No active pulmonary disease. PLEURA: No significant pleural effusion identified, no pneumothorax apparent. CARDIOVASCULAR: Normal. OSSEOUS STRUCTURES: No significant abnormalities. VISUALIZED UPPER ABDOMEN: Normal. OTHER FINDINGS: None. IMPRESSION: No active disease.
[2017-06-03 09:05] LABS: BASO % 0.5 % (0.0-2.0); EOS # 0.1 K/uL (0.0-0.7); HEMOGLOBIN 11.9 g/dL (11.0-16.0); LYMPH # 0.9 K/uL (1.0-4.3); LYMPH % 29.5 % (20.0-40.0); MEAN CELL VOLUME 90.9 fL (81.0-99.0); MEAN CORPUSCULAR HEMOGLOBIN 29.9 pg (27.0-31.0); MEAN CORPUSCULAR HGB CONC 32.9 g/dL (33.0-37.0); MEAN PLATELET VOLUME 11.4 fL (7.2-11.7); MONO # 0.3 K/uL (0.0-0.8); MONO % 9.2 % (0.0-10.0); NEUT # 1.8 K/uL (1.8-7.0); NEUT % 58.8 % (50.0-75.0); RBC 3.97 Mil/uL (3.80-5.20); RED CELL DISTRIBUTION WIDTH 13.6 % (11.5-14.5)
[2017-06-03 09:40] LABS: ALB/GLOB RATIO 0.9 (1.0-2.1); ALBUMIN 3.5 g/dL (3.5-5.0); ALT/SGPT 23 U/L (9-52); AST/SGOT 18 U/L (14-36); BLOOD UREA NITROGEN 6 mg/dL (7-17); CALCIUM 8.8 mg/dl (8.6-10.4); GFR AFRICAN-AMERICAN > 60; GFR NON-AFRICAN AMERICAN > 60
[2017-06-03] MEDS ORDERED: Pantoprazole 80 MG in Sodium Chloride 0.9% 100 ML IVPB SCH (10:00)
--- NOTE | 2017-06-03 13:30 | CP.PCM.CON ---
<Rj Esquivel - Last Filed: 06/03/17 13:35> History of Present Illness - History of Present Illness History of Present Illness: PGY4 Initial GI consult Note Alexandra Medina is a 46 year old female with a past medical history of anemia , DVT of left LE, torn meniscus, who presents to the ED with complaints of vomiting and hematemsis. Patient ate cereal, milk and cookies this morning. She then had abdominal pain, nuasea, and emesis. Shew notes having multiple episodes of emesis then started seeing blood streaks. Patient denies chest pain , shortness of breath, palpitations, nausea, vomiting, fevers, headaches, dizziness, recent sick contacts/illnesses, easy bruising, hematochezia, melena. Since admission, she denies any additional episodes of hemetemesis, coffee- ground emesis, or melena. She has a hx of anemia. It was believed to be 2/2 fibroid?. Pt underwent a hyterectomy. Denies any previous endoscopy and colonscopy. PMD: Dr. Wright PMHx: anemia, DVT of left LE (2012), left torn meniscus (wears brace) SurgHx: IVC filter [place] [address] Casillas. Removal of IVC filter because it was causing pain. Hysterectomy 2013 FamHx: denies SocHx: denies tobacco, alcohol, drug use; unemployed, on disability; lives in [place]. ROS: 12-point ROS conducted, neg other than above Past Patient History - Infectious Disease Hx of Infectious Diseases: None - Past Medical History & Family History Past Medical History?: Yes - Past Social History Smoking Status: Never Smoked - CARDIAC Hx Peripheral Edema: Yes (2012 NO LONGER) - PULMONARY Hx Respiratory Disorders: No - NEUROLOGICAL Hx Neurological Disorder: No - HEENT Hx HEENT Problems: No - RENAL Hx Chronic Kidney Disease: No - ENDOCRINE/METABOLIC Hx Endocrine Disorders: No - HEMATOLOGICAL/ONCOLOGICAL Hx Anemia: Yes - INTEGUMENTARY Hx Dermatological Problems: No - MUSCULOSKELETAL/RHEUMATOLOGICAL Hx Musculoskeletal Disorders: No - GASTROINTESTINAL Hx Gastrointestinal Disorders: Yes (NAUSEA VOMITTING) Other/Comment: CONSTIPATION - GENITOURINARY/GYNECOLOGICAL Hx Genitourinary Disorders: No - PSYCHIATRIC Hx Substance Use: No - SURGICAL HISTORY Hx Tonsillectomy: Yes - ANESTHESIA Hx Anesthesia: Yes Hx Anesthesia Reactions: No Hx Malignant Hyperthermia: No Meds Allergies/Adverse Reactions: Allergies Allergy/AdvReac Type Severity Reaction Status Date / Time No Known Allergies Allergy Verified 06/02/17 21:03 - Medications Medications: Current Medications Sodium Chloride (Sodium Chloride 0.9%) 1,000 mls @ 100 mls/hr IV .Q10H [facility] Last Admin: 06/03/17 09:59 Dose: 100 mls/hr Pantoprazole Sodium 80 mg/ (Sodium Chloride) 100 mls @ 10 mls/hr IVPB .Q10H [facility] PRN Reason: 8 MG/HR Last Admin: 06/03/17 09:00 Dose: 10 mls/hr Ondansetron HCl (Zofran Inj) 4 mg IVP Q6 PRN PRN Reason: Nausea/Vomiting Physical Exam - Constitutional Appears: Well, No Acute Distress - Head Exam Head Exam: ATRAUMATIC, NORMOCEPHALIC - Eye Exam Eye Exam: Normal appearance - ENT Exam ENT Exam: Mucous Membranes Moist - Neck Exam Neck exam: Positive for: Normal Inspection - Respiratory Exam Respiratory Exam: Clear to Auscultation Bilateral, NORMAL BREATHING PATTERN. absent: Rales, Rhonchi, Wheezes, Respiratory Distress - Cardiovascular Exam Cardiovascular Exam: REGULAR RHYTHM, +S1, +S2 - GI/Abdominal Exam GI & Abdominal Exam: Normal Bowel Sounds, Soft. absent: Guarding, Hernia, Organomegaly, Rebound, Rigid, Tenderness - Extremities Exam Extremities exam: Negative for: joint swelling, pedal edema - Neurological Exam Neurological exam: Alert, Oriented x3 - Psychiatric Exam Psychiatric exam: Normal Affect, Normal Mood - Skin Skin Exam: Dry, Intact, Normal Color, Warm Results - Vital Signs Recent Vital Signs: Last Vital Signs Temp 97.8 F 06/03/17 08:54 Pulse 62 06/03/17 08:54 Resp 20 06/03/17 08:54 BP 114/72 06/03/17 08:54 Pulse Ox 98 06/03/17 13:18 - Labs Result Diagrams: 06/03/17 09:00 06/03/17 09:00 Labs: Laboratory Results - last 24 hr 06/02/17 06/02/17 06/02/17 21:43 21:43 21:43 WBC 5.1 RBC 4.28 Hgb 12.7 Hct 38.2 MCV 89.3 MCH 29.7 MCHC 33.2 RDW 13.3 Plt Count 125 L D MPV 11.2 Neut % (Auto) 64.6 Lymph % (Auto) 26.9 Real % (Auto) 6.9 Eos % (Auto) 1.3 Baso % (Auto) 0.3 Neut # (Auto) 3.3 Lymph # (Auto) 1.4 Real # (Auto) 0.4 Eos # (Auto) 0.1 Baso # (Auto) 0.0 Differential Comment PT 12.7 H INR 1.1 APTT 34 Fibrinogen D-Dimer, Quantitative Sodium Potassium Chloride Carbon Dioxide Anion Gap BUN Creatinine Est GFR ( Amer) Est GFR (Non-Af Amer) Random Glucose Calcium Total Bilirubin AST ALT Alkaline Phosphatase Lactate Dehydrogenase Total Protein Albumin Globulin Albumin/Globulin Ratio Lipase Urine Color Yellow Urine Clarity Hazy Urine pH 6.0 Ur Specific Bono 1.028 Urine Protein 1+ H Urine Glucose (UA) Normal Urine Ketones Trace Urine Blood Negative Urine Nitrate Negative Urine Bilirubin Negative Urine Urobilinogen Normal Ur Leukocyte Esterase Neg Urine WBC (Auto) 1 Urine RBC (Auto) 2 Ur Squamous Epith Cells 9 H Urine Bacteria Occ H Urine HCG, Qual Negative Blood Type Antibody Screen 06/02/17 06/02/17 06/03/17 21:43 21:43 09:00 WBC 3.0 L RBC 3.97 Hgb 11.9 Hct 36.1 MCV 90.9 MCH 29.9 MCHC 32.9 L RDW 13.6 Plt Count 106 L MPV 11.4 Neut % (Auto) 58.8 Lymph % (Auto) 29.5 Real % (Auto) 9.2 Eos % (Auto) 2.0 Baso % (Auto) 0.5 Neut # (Auto) 1.8 Lymph # (Auto) 0.9 L Real # (Auto) 0.3 Eos # (Auto) 0.1 Baso # (Auto) 0.0 Differential Comment PT INR APTT Fibrinogen D-Dimer, Quantitative Sodium 141 Potassium 3.7 Chloride 104 Carbon Dioxide 26 Anion Gap 16 BUN 8 Creatinine 0.8 Est GFR ( Amer) > 60 Est GFR (Non-Af Amer) > 60 Random Glucose 102 Calcium 9.5 Total Bilirubin 0.4 AST 22 ALT 22 Alkaline Phosphatase 47 Lactate Dehydrogenase Total Protein 8.3 Albumin 4.1 Globulin 4.2 H Albumin/Globulin Ratio 1.0 Lipase 64 Urine Color Urine Clarity Urine pH Ur Specific Bono Urine Protein Urine Glucose (UA) Urine Ketones Urine Blood Urine Nitrate Urine Bilirubin Urine Urobilinogen Ur Leukocyte Esterase Urine WBC (Auto) Urine RBC (Auto) Ur Squamous Epith Cells Urine Bacteria Urine HCG, Qual Blood Type O POSITIVE Antibody Screen Negative 06/03/17 06/03/17 06/03/17 09:00 11:25 12:44 WBC RBC Hgb Hct MCV MCH MCHC RDW Plt Count MPV Neut % (Auto) Lymph % (Auto) Real % (Auto) Eos % (Auto) Baso % (Auto) Neut # (Auto) Lymph # (Auto) Real # (Auto) Eos # (Auto) Baso # (Auto) Differential Comment PT INR APTT Fibrinogen 313 D-Dimer, Quantitative 202 Sodium 141 Potassium 4.0 Chloride 108 H Carbon Dioxide 24 Anion Gap 13 BUN 6 L Creatinine 0.6 L Est GFR ( Amer) > 60 Est GFR (Non-Af Amer) > 60 Random Glucose 79 Calcium 8.8 Total Bilirubin 0.5 AST 18 ALT 23 Alkaline Phosphatase 44 Lactate Dehydrogenase Total Protein 7.1 Albumin 3.5 Globulin 3.6 Albumin/Globulin Ratio 0.9 L Lipase Urine Color Urine Clarity Urine pH Ur Specific Bono Urine Protein Urine Glucose (UA) Urine Ketones Urine Blood Urine Nitrate Urine Bilirubin Urine Urobilinogen Ur Leukocyte Esterase Urine WBC (Auto) Urine RBC (Auto) Ur Squamous Epith Cells Urine Bacteria Urine HCG, Qual Blood Type Antibody Screen 06/03/17 12:46 WBC RBC Hgb Hct MCV MCH MCHC RDW Plt Count MPV Neut % (Auto) Lymph % (Auto) Real % (Auto) Eos % (Auto) Baso % (Auto) Neut # (Auto) Lymph # (Auto) Real # (Auto) Eos # (Auto) Baso # (Auto) Differential Comment PT INR APTT Fibrinogen D-Dimer, Quantitative Sodium Potassium Chloride Carbon Dioxide Anion Gap BUN Creatinine Est GFR ( Amer) Est GFR (Non-Af Amer) Random Glucose Calcium Total Bilirubin AST ALT Alkaline Phosphatase Lactate Dehydrogenase 319 Total Protein Albumin Globulin Albumin/Globulin Ratio Lipase Urine Color Urine Clarity Urine pH Ur Specific Bono Urine Protein Urine Glucose (UA) Urine Ketones Urine Blood Urine Nitrate Urine Bilirubin Urine Urobilinogen Ur Leukocyte Esterase Urine WBC (Auto) Urine RBC (Auto) Ur Squamous Epith Cells Urine Bacteria Urine HCG, Qual Blood Type Antibody Screen Assessment & Plan - Assessment and Plan (Free Text) Assessment: Alexandra Medina is a 46 F w/ hx of anemia, DVT of left LE, torn meniscus who presented to the ER with complaints of hematemesis. Etiology is likley isidoro candis tears Bloody emesis, etiology likely isidoro jose tears Hx of anemia, hgb stable, at baseline Plan: -will defer any Gi intervention at this time -colonoscopy and endoscopy as an oupt -follow-up at clinic -recommend daily protonix 40mg daily -advance diet to regular -okay to d/c from GI standpoint -hgb stable D/W Dr. Nuñez <Gabriel Nuñez - Last Filed: 06/03/17 15:39> Meds - Medications Medications: Current Medications Sodium Chloride (Sodium Chloride 0.9%) 1,000 mls @ 100 mls/hr IV .Q10H [facility] Last Admin: 06/03/17 09:59 Dose: 100 mls/hr Ondansetron HCl (Zofran Inj) 4 mg IVP Q6 PRN PRN Reason: Nausea/Vomiting Pantoprazole Sodium (Protonix Ec Tab) 40 mg PO DAILY [facility] Results - Vital Signs Recent Vital Signs: Last Vital Signs Temp 97.8 F 06/03/17 08:54 Pulse 62 06/03/17 08:54 Resp 20 06/03/17 08:54 BP 114/72 06/03/17 08:54 Pulse Ox 98 06/03/17 13:18 - Labs Result Diagrams: 06/03/17 09:00 06/03/17 09:00 Labs: Laboratory Results - last 24 hr 06/02/17 06/02/17 06/02/17 21:43 21:43 21:43 WBC 5.1 RBC 4.28 Hgb 12.7 Hct 38.2 MCV 89.3 MCH 29.7 MCHC 33.2 RDW 13.3 Plt Count 125 L D MPV 11.2 Neut % (Auto) 64.6 Lymph % (Auto) 26.9 Real % (Auto) 6.9 Eos % (Auto) 1.3 Baso % (Auto) 0.3 Neut # (Auto) 3.3 Lymph # (Auto) 1.4 Real # (Auto) 0.4 Eos # (Auto) 0.1 Baso # (Auto) 0.0 Differential Comment PT 12.7 H INR 1.1 APTT 34 Fibrinogen D-Dimer, Quantitative Sodium Potassium Chloride Carbon Dioxide Anion Gap BUN Creatinine Est GFR ( Amer) Est GFR (Non-Af Amer) Random Glucose Calcium Total Bilirubin AST ALT Alkaline Phosphatase Lactate Dehydrogenase Total Protein Albumin Globulin Albumin/Globulin Ratio Lipase Urine Color Yellow Urine Clarity Hazy Urine pH 6.0 Ur Specific Bono 1.028 Urine Protein 1+ H Urine Glucose (UA) Normal Urine Ketones Trace Urine Blood Negative Urine Nitrate Negative Urine Bilirubin Negative Urine Urobilinogen Normal Ur Leukocyte Esterase Neg Urine WBC (Auto) 1 Urine RBC (Auto) 2 Ur Squamous Epith Cells 9 H Urine Bacteria Occ H Urine HCG, Qual Negative Blood Type Antibody Screen 06/02/17 06/02/17 06/03/17 21:43 21:43 09:00 WBC 3.0 L RBC 3.97 Hgb 11.9 Hct 36.1 MCV 90.9 MCH 29.9 MCHC 32.9 L RDW 13.6 Plt Count 106 L MPV 11.4 Neut % (Auto) 58.8 Lymph % (Auto) 29.5 Real % (Auto) 9.2 Eos % (Auto) 2.0 Baso % (Auto) 0.5 Neut # (Auto) 1.8 Lymph # (Auto) 0.9 L Real # (Auto) 0.3 Eos # (Auto) 0.1 Baso # (Auto) 0.0 Differential Comment PT INR APTT Fibrinogen D-Dimer, Quantitative Sodium 141 Potassium 3.7 Chloride 104 Carbon Dioxide 26 Anion Gap 16 BUN 8 Creatinine 0.8 Est GFR ( Amer) > 60 Est GFR (Non-Af Amer) > 60 Random Glucose 102 Calcium 9.5 Total Bilirubin 0.4 AST 22 ALT 22 Alkaline Phosphatase 47 Lactate Dehydrogenase Total Protein 8.3 Albumin 4.1 Globulin 4.2 H Albumin/Globulin Ratio 1.0 Lipase 64 Urine Color Urine Clarity Urine pH Ur Specific Bono Urine Protein Urine Glucose (UA) Urine Ketones Urine Blood Urine Nitrate Urine Bilirubin Urine Urobilinogen Ur Leukocyte Esterase Urine WBC (Auto) Urine RBC (Auto) Ur Squamous Epith Cells Urine Bacteria Urine HCG, Qual Blood Type O POSITIVE Antibody Screen Negative 06/03/17 06/03/17 06/03/17 09:00 11:25 12:44 WBC RBC Hgb Hct MCV MCH MCHC RDW Plt Count MPV Neut % (Auto) Lymph % (Auto) Real % (Auto) Eos % (Auto) Baso % (Auto) Neut # (Auto) Lymph # (Auto) Real # (Auto) Eos # (Auto) Baso # (Auto) Differential Comment PT INR APTT Fibrinogen 313 D-Dimer, Quantitative 202 Sodium 141 Potassium 4.0 Chloride 108 H Carbon Dioxide 24 Anion Gap 13 BUN 6 L Creatinine 0.6 L Est GFR ( Amer) > 60 Est GFR (Non-Af Amer) > 60 Random Glucose 79 Calcium 8.8 Total Bilirubin 0.5 AST 18 ALT 23 Alkaline Phosphatase 44 Lactate Dehydrogenase Total Protein 7.1 Albumin 3.5 Globulin 3.6 Albumin/Globulin Ratio 0.9 L Lipase Urine Color Urine Clarity Urine pH Ur Specific Bono Urine Protein Urine Glucose (UA) Urine Ketones Urine Blood Urine Nitrate Urine Bilirubin Urine Urobilinogen Ur Leukocyte Esterase Urine WBC (Auto) Urine RBC (Auto) Ur Squamous Epith Cells Urine Bacteria Urine HCG, Qual Blood Type Antibody Screen 06/03/17 12:46 WBC RBC Hgb Hct MCV MCH MCHC RDW Plt Count MPV Neut % (Auto) Lymph % (Auto) Real % (Auto) Eos % (Auto) Baso % (Auto) Neut # (Auto) Lymph # (Auto) Real # (Auto) Eos # (Auto) Baso # (Auto) Differential Comment PT INR APTT Fibrinogen D-Dimer, Quantitative Sodium Potassium Chloride Carbon Dioxide Anion Gap BUN Creatinine Est GFR ( Amer) Est GFR (Non-Af Amer) Random Glucose Calcium Total Bilirubin AST ALT Alkaline Phosphatase Lactate Dehydrogenase 319 Total Protein Albumin Globulin Albumin/Globulin Ratio Lipase Urine Color Urine Clarity Urine pH Ur Specific Bono Urine Protein Urine Glucose (UA) Urine Ketones Urine Blood Urine Nitrate Urine Bilirubin Urine Urobilinogen Ur Leukocyte Esterase Urine WBC (Auto) Urine RBC (Auto) Ur Squamous Epith Cells Urine Bacteria Urine HCG, Qual Blood Type Antibody Screen Attending/Attestation - Attestation I have personally seen and examined this patient.: Yes I have fully participated in the care of the patient.: Yes I have reviewed all pertinent clinical information: Yes Notes (Text): 06/03/17 15:35 Patient seen at bedside this am. This is a 46 F with history of anemia, DVT of left LE, torn meniscus who presented to the ER with complaints of hematemesis after eating cereal and vomiting. Etiology is likley isidoro jose tear which has resolved. Has history of anemia due to menorrhagia s/p MK. Denies hematochezia, dark stools. Hct at baseline. Regular diet. Can follow in [facility] for EGD/ colonoscopy for anemia. thank you for letting us participate in the care of your patient
--- NOTE | 2017-06-03 15:54 | US ---
HISTORY: abdominal pain COMPARISON: None. TECHNIQUE: Sonographic evaluation of the abdomen. FINDINGS: LIVER: Measures 16.9 cm. Diffusely increased echogenicity of the liver parenchyma. Consistent with fatty infiltration. No mass. No intrahepatic biliary ductal dilatation. GALLBLADDER: Unremarkable. No gallstones. COMMON BILE DUCT: Measures 5 mm. No stones. No dilatation. PANCREAS: Unremarkable as visualized. No mass. No ductal dilatation. RIGHT KIDNEY: Measures 11.0cm. Normal echogenicity. No calculus, mass, or hydronephrosis. LEFT KIDNEY: Measures 10.1cm. Normal echogenicity. No calculus or hydronephrosis. Upper pole simple cortical cyst, 2.1 x 2.3 x 2.6 cm. SPLEEN: Normal in size and contour. No mass. AORTA: No aneurysmal dilatation. IVC: IVC filter not visualized on this examination. Flow demonstrated. OTHER FINDINGS: None. IMPRESSION: Mild fatty infiltration of the liver. 2.6 cm left upper pole renal cortical cyst. Otherwise unremarkable examination.
[2017-06-03] MEDS: Pantoprazole 40 mg EC Tab PO SCH (16:28)
[2017-06-03 17:10] LABS: BASO % 0.4 % (0.0-2.0); EOS # 0.1 K/uL (0.0-0.7); EOS % 1.4 % (0.0-4.0); HEMOGLOBIN 12.4 g/dL (11.0-16.0); LYMPH % 27.8 % (20.0-40.0); MEAN CELL VOLUME 91.4 fL (81.0-99.0); MEAN CORPUSCULAR HEMOGLOBIN 29.8 pg (27.0-31.0); MEAN CORPUSCULAR HGB CONC 32.6 g/dL (33.0-37.0); MEAN PLATELET VOLUME 11.8 fL (7.2-11.7); MONO # 0.3 K/uL (0.0-0.8); MONO % 6.7 % (0.0-10.0); NEUT # 2.4 K/uL (1.8-7.0); NEUT % 63.7 % (50.0-75.0); NRBC % 0.1 % (0.0-2.0); RBC 4.17 Mil/uL (3.80-5.20); RED CELL DISTRIBUTION WIDTH 13.7 % (11.5-14.5); WHITE BLOOD COUNT 3.8 K/uL (4.8-10.8)
--- NOTE | 2017-06-03 17:43 | CP.PCM.PN ---
<DanePhilip Drew - Last Filed: 06/03/17 17:28> Subjective - Date & Time of Evaluation Date of Evaluation: 06/03/17 Time of Evaluation: 10:00 - Subjective Subjective: PGY-[address] Nogueira. No acute events noted overnight. Patient has not had any production of blood since presentation. She offers no complaints. She denied chest pain, shortness of breath, nausea, vomiting, diarrhea. Her last BM was 2 day ago. Objective - Vital Signs/Intake and Output Vital Signs (last 24 hours): Temp Pulse Resp BP Pulse Ox 97.5 F L 60 20 118/80 97 06/03/17 16:32 06/03/17 16:32 06/03/17 16:32 06/03/17 16:32 06/03/17 16:32 - Medications Medications: Current Medications Sodium Chloride (Sodium Chloride 0.9%) 1,000 mls @ 100 mls/hr IV .Q10H [facility] Last Admin: 06/03/17 09:59 Dose: 100 mls/hr Ondansetron HCl (Zofran Inj) 4 mg IVP Q6 PRN PRN Reason: Nausea/Vomiting Pantoprazole Sodium (Protonix Ec Tab) 40 mg PO DAILY [facility] Last Admin: 06/03/17 16:28 Dose: 40 mg - Labs Labs: 06/03/17 16:58 06/03/17 09:00 PT 12.7 SECONDS (9.7-12.2) H 06/02/17 21:43 INR 1.1 06/02/17 21:43 APTT 34 SECONDS (21-34) 06/02/17 21:43 - Additional Findings Additional findings: - Head Exam Head Exam: absent: ATRAUMATIC, NORMAL INSPECTION - Eye Exam Eye Exam: EOMI, Normal appearance, PERRL - ENT Exam ENT Exam: Mucous Membranes Moist - Neck Exam Neck exam: Positive for: Normal Inspection. Negative for: Tenderness - Respiratory Exam Respiratory Exam: Clear to Auscultation Bilateral, NORMAL BREATHING PATTERN. absent: Rhonchi, Wheezes, Respiratory Distress - Cardiovascular Exam Cardiovascular Exam: REGULAR RHYTHM, +S1, +S2 - GI/Abdominal Exam GI & Abdominal Exam: Normal Bowel Sounds, Soft, Tenderness (diffuse). absent: Distended, Firm, Guarding, Mass, Rigid - Rectal Exam Rectal Exam: Deferred (patient declined and said she would think about reconsidering) - Extremities Exam Extremities exam: Positive for: full ROM (RLE; decreased ROM of Left LE 2/2 to pain from torn meniscus), pedal edema (mild pitting edema b/l), pedal pulses present. Negative for: calf tenderness, tenderness - Neurological Exam Neurological exam: Alert, Oriented x3 - Skin Skin Exam: Dry, Intact, Normal Color, Warm Assessment and Plan - Assessment and Plan (Free Text) Assessment: (1) GI bleed Assessment and Plan: Hemoptysis, Hematemesis Hgb/Hct currently stable GI consulted, Dr. Nuñez; help appreciated * Etiology is likley isidoro jose tear which has resolved * colonoscopy and endoscopy as an outpatient * recommend daily protonix 40mg daily * GI has signed off. Labs/Diagnostics: Lipase NORMAL, LFTs NORMAL, LDH NORMAL, D-Dimer NORMAL, Fibrinogen NORMAL F/U Stool occult F/U HIV screen and Hepatitis Panel Imaging: Abd U/S: Mild fatty infiltration of the liver. 2.6cm left upper pole renal cortical cyst. Other unremarkable. CXR: No active disease Meds: Protonix 40mg PO QD * Protonix Drip DISCONTINUED * Protonix 40mg Inj DISCONTINUED Zofran 4mg IV prn for nausea/vomiting NS 100cc/hr Status: Acute (2) History of torn meniscus of left knee Assessment and Plan: Patient wears brace for torn meniscus. Injury occurred in 2012. Status: Acute (3) Hx of deep venous thrombosis Assessment and Plan: Hx of DVT in left LE in 2012. Patient had IVC filter placed by Dr. Casillas in 2012; however, filter was causing discomfort and patient had it removed 10/16/16. Venous Dopplers LE ordered - NEGATIVE Status: Acute (4) Prophylactic measure Assessment and Plan: DVT: SCDs; chemical anticoagulation C/I due to gi bleed, thrombocytopenia GI: Protonix drip Heart healthy diet Status: Acute Disposition: Discharge home with GI instruction to follow-up at [facility] clinic for referral to GI for outpatient EGD and colonoscopy. Protonix 40mg PO QD. <Consuelo Nogueira V - Last Filed: 06/03/17 18:18> Objective - Vital Signs/Intake and Output Vital Signs (last 24 hours): Temp Pulse Resp BP Pulse Ox 97.5 F L 60 20 118/80 97 06/03/17 16:32 06/03/17 16:32 06/03/17 16:32 06/03/17 16:32 06/03/17 16:32 - Medications Medications: Current Medications Sodium Chloride (Sodium Chloride 0.9%) 1,000 mls @ 100 mls/hr IV .Q10H [facility] Last Admin: 06/03/17 09:59 Dose: 100 mls/hr Ondansetron HCl (Zofran Inj) 4 mg IVP Q6 PRN PRN Reason: Nausea/Vomiting Pantoprazole Sodium (Protonix Ec Tab) 40 mg PO DAILY [facility] Last Admin: 06/03/17 16:28 Dose: 40 mg - Labs Labs: 06/03/17 16:58 06/03/17 09:00 PT 12.7 SECONDS (9.7-12.2) H 06/02/17 21:43 INR 1.1 06/02/17 21:43 APTT 34 SECONDS (21-34) 06/02/17 21:43 Attending/Attestation - Attestation I have personally seen and examined this patient.: Yes I have fully participated in the care of the patient.: Yes I have reviewed all pertinent clinical information, including history, physical exam and plan: Yes Notes (Text): Patient seen, examined and case discussed with day-time resident. Patient reports she came into the hospital because after she ate breakfast of cereal and then threw up vomit and reports coughed up clots of blood. Patient is currently not on a blood thinner, she is not taking any aspirin nor NSAID. She denies taking any red color food coloring today. patient has a prior known DVT diagnosed in 2012, wherein she could not tolerate anticoagulation beyond 2 weeks; she had IVC filter however she had it subsequently removed due to discomfort. Have ordered repeat venous dopplers to rule out DVT. I have ordered for D-Dimer to see if elevated. Patient has not had any recent surgery, malignancy, smoking, overweight, immobility to suggest PE. Patient is known patient of the clinic. verified in the EMR. Patient was seen and evaluated by GI, stable from their standpoint for discharge . patient came with mild thrombocytopenia, ordered for HIV/hepatitis panel, abdominal US. Patient was previously on Protonix drip which would worsen platelets. Drip was discontinued and patient is set for scheduled PPi by mouth for tomorrow. Assessment/Plan (1) GI bleed Assessment and Plan: * Hemoptysis, Hematemesis * Hgb/Hct currently stable * GI consulted, Dr. Nuñez; help appreciated * Etiology is likely isidoro jose tear which has resolved * colonoscopy and endoscopy as an outpatient * recommend daily protonix 40mg daily * GI has signed off. * Labs/Diagnostics: * Lipase NORMAL, LFTs NORMAL, LDH NORMAL, D-Dimer NORMAL, Fibrinogen NORMAL * F/U Stool occult-->patient refused on admission and as well as this morning for rectal examination * F/U HIV screen and Hepatitis Panel * Imaging: * Abd U/S: Mild fatty infiltration of the liver. 2.6cm left upper pole renal cortical cyst. Other unremarkable. * CXR: No active disease Meds: * Protonix 40mg PO QDdaily * Protonix Drip DISCONTINUED * Zofran 4mg IV prn for nausea/vomiting * NS 100cc/hr Status: Acute (2) History of torn meniscus of left knee Assessment and Plan: * Patient wears brace for torn meniscus. Injury occurred in 2012. Patient is follow-up by Dr. Rahman in the clinic. patient has required steroid injections in the past. Status: Chronic (3) Hx of deep venous thrombosis Assessment and Plan: * Hx of DVT in left LE in 2012. * Patient had IVC filter placed by Dr. Casillas in 2012; however, filter was causing discomfort and patient had it removed 10/16/16. * Venous Dopplers LE ordered - NEGATIVE * Patient is off anticoagulation because she could not tolerate treatment * Patient has had IVC filter removed due to pain Status: Chronic (4) Prophylactic measure Assessment and Plan: * DVT: SCDs; chemical anticoagulation C/I due to gi bleed, thrombocytopenia * GI: Protonix drip--->Switched to PO Protonix * Heart healthy diet Status: Acute Disposition: Plan is for discharge tomorrow with GI instruction to follow-up at [facility] clinic for referral to GI for outpatient EGD and colonoscopy. Protonix 40mg PO QD. Will monitor platelets to see if improves.
[2017-06-04 08:40] LABS: BASO % 0.5 % (0.0-2.0); EOS % 1.3 % (0.0-4.0); HEMOGLOBIN 12.8 g/dL (11.0-16.0); LYMPH # 0.9 K/uL (1.0-4.3); LYMPH % 28.2 % (20.0-40.0); MEAN CELL VOLUME 90.7 fL (81.0-99.0); MEAN CORPUSCULAR HGB CONC 33.1 g/dL (33.0-37.0); MEAN PLATELET VOLUME 11.2 fL (7.2-11.7); MONO # 0.2 K/uL (0.0-0.8); MONO % 6.9 % (0.0-10.0); NEUT % 63.1 % (50.0-75.0); NRBC % 0.1 % (0.0-2.0); RBC 4.26 Mil/uL (3.80-5.20); RED CELL DISTRIBUTION WIDTH 13.8 % (11.5-14.5); WHITE BLOOD COUNT 3.2 K/uL (4.8-10.8)
[2017-06-04 08:50] LABS: HEPATITIS B SURFACE AG Negative (NEGATIVE)
[2017-06-04 08:56] LABS: HEPATITIS A IGM NEGATIVE (NEGATIVE); HEPATITIS B CORE AB NEGATIVE (NEGATIVE)
[2017-06-04 08:59] LABS: ALB/GLOB RATIO 0.9 (1.0-2.1); ALBUMIN 3.7 g/dL (3.5-5.0); ALT/SGPT 21 U/L (9-52); AST/SGOT 22 U/L (14-36); BLOOD UREA NITROGEN 7 mg/dL (7-17); CALCIUM 8.9 mg/dl (8.6-10.4); GFR AFRICAN-AMERICAN > 60; GFR NON-AFRICAN AMERICAN > 60
[2017-06-04 09:07] LABS: HEPATITIS C ANTIBODY NEGATIVE (NEGATIVE)
[2017-06-04] MEDS: Pantoprazole 40 mg EC Tab PO SCH (11:17)
[2017-06-04] MEDS: Sodium Chloride 0.9% 1,000 ML IV SCH (11:19)
[2017-06-04] MEDS ORDERED: Influenza Vaccine 60 mcg/0.5 mL SYR (4YR UP) IM ONE (14:47)
[2017-06-04] MEDS ORDERED: Pneumococcal 23-Valent Vaccine IM ONE (14:47)
[2017-06-04 16:32] VITALS: PULSE 60
--- NOTE | 2017-06-04 17:03 | CP.PCM.DIS ---
<Philip Vela - Last Filed: 06/04/17 17:01> Provider - Provider Date of Admission: 06/02/17 22:05 Attending physician: Jorge Brumfield MD Primary care physician: PMD: Dr Wright Consults: GI: Dr Nuñez Time Spent in preparation of Discharge (in minutes): 33 Hospital Course - Lab Results Lab Results: Most Recent Lab Values WBC 3.2 K/uL (4.8-10.8) L 06/04/17 08:26 RBC 4.26 Mil/uL (3.80-5.20) 06/04/17 08:26 Hgb 12.8 g/dL (11.0-16.0) 06/04/17 08:26 Hct 38.6 % (34.0-47.0) 06/04/17 08:26 MCV 90.7 fL (81.0-99.0) 06/04/17 08:26 MCH 30.0 pg (27.0-31.0) 06/04/17 08:26 MCHC 33.1 g/dL (33.0-37.0) 06/04/17 08:26 RDW 13.8 % (11.5-14.5) 06/04/17 08:26 Plt Count 111 K/uL (130-400) L 06/04/17 08:26 MPV 11.2 fL (7.2-11.7) 06/04/17 08:26 Neut % (Auto) 63.1 % (50.0-75.0) 06/04/17 08:26 Lymph % (Auto) 28.2 % (20.0-40.0) 06/04/17 08:26 [place] % (Auto) 6.9 % (0.0-10.0) 06/04/17 08:26 Eos % (Auto) 1.3 % (0.0-4.0) 06/04/17 08:26 Baso % (Auto) 0.5 % (0.0-2.0) 06/04/17 08:26 Neut # (Auto) 2.0 K/uL (1.8-7.0) 06/04/17 08:26 Lymph # (Auto) 0.9 K/uL (1.0-4.3) L 06/04/17 08:26 [place] # (Auto) 0.2 K/uL (0.0-0.8) 06/04/17 08:26 Eos # (Auto) 0.0 K/uL (0.0-0.7) 06/04/17 08:26 Baso # (Auto) 0.0 K/uL (0.0-0.2) 06/04/17 08:26 Differential Comment 06/02/17 21:43 PT 12.7 SECONDS (9.7-12.2) H 06/02/17 21:43 INR 1.1 06/02/17 21:43 APTT 34 SECONDS (21-34) 06/02/17 21:43 Fibrinogen 313 mg/dL (200-400) 06/03/17 12:44 D-Dimer, Quantitative 202 ng/mlDDU (0-243) 06/03/17 11:25 Sodium 140 mmol/L (132-148) 06/04/17 08:26 Potassium 3.7 mmol/L (3.6-5.2) 06/04/17 08:26 Chloride 106 mmol/L (98-107) 06/04/17 08:26 Carbon Dioxide 26 mmol/L (22-30) 06/04/17 08:26 Anion Gap 13 (10-20) 06/04/17 08:26 BUN 7 mg/dL (7-17) 06/04/17 08:26 Creatinine 0.6 mg/dL (0.7-1.2) L 06/04/17 08:26 Est GFR ( Amer) > 60 06/04/17 08:26 Est GFR (Non-Af Amer) > 60 06/04/17 08:26 Random Glucose 77 mg/dL (65-105) 06/04/17 08:26 Calcium 8.9 mg/dl (8.6-10.4) 06/04/17 08:26 Phosphorus 2.9 mg/dL (2.5-4.5) 06/04/17 08:26 Magnesium 1.7 mg/dL (1.6-2.3) 06/04/17 08:26 Total Bilirubin 0.5 mg/dL (0.2-1.3) 06/04/17 08:26 AST 22 U/L (14-36) 06/04/17 08:26 ALT 21 U/L (9-52) 06/04/17 08:26 Alkaline Phosphatase 44 U/L (38-126) 06/04/17 08:26 Lactate Dehydrogenase 319 U/L (313-618) 06/03/17 12:46 Total Protein 7.7 g/dL (6.3-8.3) 06/04/17 08:26 Albumin 3.7 g/dL (3.5-5.0) 06/04/17 08:26 Globulin 3.9 gm/dL (2.2-3.9) 06/04/17 08:26 Albumin/Globulin Ratio 0.9 (1.0-2.1) L 06/04/17 08:26 Lipase 64 U/L (23-300) 06/02/17 21:43 Urine Color Yellow (YELLOW) 06/02/17 21:43 Urine Clarity Hazy (Clear) 06/02/17 21:43 Urine pH 6.0 (5.0-8.0) 06/02/17 21:43 Ur Specific [place] 1.028 (1.003-1.030) 06/02/17 21:43 Urine Protein 1+ mg/dL (NEGATIVE) H 06/02/17 21:43 Urine Glucose (UA) Normal mg/dL (Normal) 06/02/17 21:43 Urine Ketones Trace mg/dL (NEGATIVE) 06/02/17 21:43 Urine Blood Negative (NEGATIVE) 06/02/17 21:43 Urine Nitrate Negative (NEGATIVE) 06/02/17 21:43 Urine Bilirubin Negative (NEGATIVE) 06/02/17 21:43 Urine Urobilinogen Normal mg/dL (0.2-1.0) 06/02/17 21:43 Ur Leukocyte Esterase Neg Pedro/uL (Negative) 06/02/17 21:43 Urine WBC (Auto) 1 /hpf (0-5) 06/02/17 21:43 Urine RBC (Auto) 2 /hpf (0-3) 06/02/17 21:43 Ur Squamous Epith Cells 9 /hpf (0-5) H 06/02/17 21:43 Urine Bacteria Occ (<OCC) H 06/02/17 21:43 Urine HCG, Qual Negative (NEGATIVE) 06/02/17 21:43 Hepatitis A IgM Ab Negative (NEGATIVE) 06/03/17 12:46 Hep Bs Antigen Negative (NEGATIVE) 06/03/17 12:46 Hep B Core IgM Ab Negative (NEGATIVE) 06/03/17 12:46 Hepatitis C Antibody Negative (NEGATIVE) 06/03/17 12:46 HIV 1&2 Antibody Screen Negative (NEGATIVE) 06/03/17 16:58 Blood Type O POSITIVE 06/02/17 21:43 Antibody Screen Negative 06/02/17 21:43 - Hospital Course Hospital Course: Patient is a 46 year old female who was admitted for GI bleed after an episode of hemoptysis and nonbloody post-tussive vomiting. Hemoglobin and hematocrit were stable on admission. Copy Manager Dr. Nuñez was consulted; she attributed symptoms to a resolved Kathy Jose tear and recommended Protonix daily, and outpatient endoscopy/colonoscopy. Patient had normal lipase, LFTs, LDH, D-dimer, and fibrinogen. She refused stool occult test. Hepatitis panel and HIV screen were negative. Abdominal ultrasound (06/03/17) showed mild fatty infiltration of the liver and a 2.6cm left upper pole renal cortical cyst. Chest x-ray (06/03/17) was negative for active disease. Patient was initially treated with Protonix drip but then it was discontinued due to mild thrombocytopenia, and switched to Protonix PO. Venous dopplers of the lower extremities ordered due to patient's history of DVT ; however given that the D-dimer was normal the venous doppler study was cancelled. Patient states that she follows up in the clinic with orthopedic surgeon Dr. Jaime Tate for her history of torn meniscus in the left knee. On discharge, Hgb 12.8 and Hct 38.6, with stable vitals. Patient was discharged with instructions to follow-up in the [facility] and understood need for outpatient endoscopy/colonoscopy. This is a summary of patient's hospital course. For full details, please see most recent progress note. (1) GI bleed Assessment and Plan: * Hemoptysis, Hematemesis * Hgb/Hct currently stable * GI consulted, Dr. Nuñez; help appreciated * Etiology is likely kathy jose tear which has resolved * colonoscopy and endoscopy as an outpatient * recommend daily protonix 40mg daily * GI has signed off. * Labs/Diagnostics: * Lipase NORMAL, LFTs NORMAL, LDH NORMAL, D-Dimer NORMAL, Fibrinogen NORMAL * F/U Stool occult-->patient refused on admission and as well as this morning for rectal examination * F/U HIV screen and Hepatitis Panel * Imaging: * Abd U/S: Mild fatty infiltration of the liver. 2.6cm left upper pole renal cortical cyst. Other unremarkable. * CXR: No active disease Meds: * Protonix 40mg PO QDdaily * Protonix Drip DISCONTINUED * Zofran 4mg IV prn for nausea/vomiting * NS 100cc/hr Status: Acute (2) History of torn meniscus of left knee Assessment and Plan: * Patient wears brace for torn meniscus. Injury occurred in 2012. Patient is follow-up by Dr. Rahman in the clinic. patient has required steroid injections in the past. Status: Chronic (3) Hx of deep venous thrombosis Assessment and Plan: * Hx of DVT in left LE in 2012. * Patient had IVC filter placed by Dr. Casillas in 2012; however, filter was causing discomfort and patient had it removed 10/16/16. * Venous Dopplers LE ordered - NEGATIVE * Patient is off anticoagulation because she could not tolerate treatment * Patient has had IVC filter removed due to pain Status: Chronic (4) Prophylactic measure Assessment and Plan: * DVT: SCDs; chemical anticoagulation C/I due to gi bleed, thrombocytopenia * GI: Protonix drip--->Switched to PO Protonix * Heart healthy diet Status: Acute Discharge Exam - Additional Findings Additional findings: - Head Exam Head Exam: absent: ATRAUMATIC, NORMAL INSPECTION - Eye Exam Eye Exam: EOMI, Normal appearance, PERRL - ENT Exam ENT Exam: Mucous Membranes Moist - Neck Exam Neck exam: Positive for: Normal Inspection. Negative for: Tenderness - Respiratory Exam Respiratory Exam: Clear to Auscultation Bilateral, NORMAL BREATHING PATTERN. absent: Rhonchi, Wheezes, Respiratory Distress - Cardiovascular Exam Cardiovascular Exam: REGULAR RHYTHM, +S1, +S2 - GI/Abdominal Exam GI & Abdominal Exam: Normal Bowel Sounds, Soft, Tenderness (diffuse). absent: Distended, Firm, Guarding, Mass, Rigid - Rectal Exam Rectal Exam: Deferred (patient declined and said she would think about reconsidering) - Extremities Exam Extremities exam: Positive for: full ROM (RLE; decreased ROM of Left LE 2/2 to pain from torn meniscus), pedal edema (mild pitting edema b/l), pedal pulses present. Negative for: calf tenderness, tenderness - Neurological Exam Neurological exam: Alert, Oriented x3 - Skin Skin Exam: Dry, Intact, Normal Color, Warm Discharge Plan - Discharge Medications Prescriptions: Omeprazole 40 mg PO DAILY #30 capsule.dr - Follow Up Plan Condition: STABLE Disposition: HOME/ ROUTINE Instructions: Gastrointestinal Bleeding (DC), Upper GI Endoscopy (DC), Omeprazole, Colonoscopy Additional Instructions: Patient is medically stable for discharge. The Gastroenterology doctor has recommended that you receive an outpatient EGD and Colonoscopy. These are low-risk procedures where the doctor inserts a thin camera into your GI tract. This will provide more information regarding your recent episode of coughing up blood. A Gastroenterology doctor can be reached by receiving a referral from your Primary Care Doctor. You are established with the [facility] here at [facility]. Please see a doctor at the [facility] so you may be referred to a Gastroenterology doctor. Please go see your PMD in 1 week. [facility] [address] [place] [address] You will be given scripts for the following new medication. Please take this medication as instructed. 1. Omeprazole 40mg by mouth once a day for 30 days In regards to your left knee torn meniscus, you will need an evaluation by Orthopedics. You can get a referral to an Orthopedic doctor from the [facility]. And lastly, drink 9az prune juice in the morning and evening until you have a bowel movement. If symptoms return and are concerning to you please return to your nearest emergency department. <Jose A Esquivel - Last Filed: 06/04/17 18:31> Provider - Provider Date of Admission: 06/02/17 22:05 Attending physician: Jorge Brumfield MD Time Spent in preparation of Discharge (in minutes): 40 Hospital Course - Lab Results Lab Results: Most Recent Lab Values WBC 3.2 K/uL (4.8-10.8) L 06/04/17 08:26 RBC 4.26 Mil/uL (3.80-5.20) 06/04/17 08:26 Hgb 12.8 g/dL (11.0-16.0) 06/04/17 08:26 Hct 38.6 % (34.0-47.0) 06/04/17 08:26 MCV 90.7 fL (81.0-99.0) 06/04/17 08:26 MCH 30.0 pg (27.0-31.0) 06/04/17 08:26 MCHC 33.1 g/dL (33.0-37.0) 06/04/17 08:26 RDW 13.8 % (11.5-14.5) 06/04/17 08:26 Plt Count 111 K/uL (130-400) L 06/04/17 08:26 MPV 11.2 fL (7.2-11.7) 06/04/17 08:26 Neut % (Auto) 63.1 % (50.0-75.0) 06/04/17 08: Lymph % (Auto) 28.2 % (20.0-40.0) 06/04/17 08: [place] % (Auto) 6.9 % (0.0-10.0) 06/04/17 08:26 Eos % (Auto) 1.3 % (0.0-4.0) 06/04/17 08:26 Baso % (Auto) 0.5 % (0.0-2.0) 06/04/17 08:26 Neut # (Auto) 2.0 K/uL (1.8-7.0) 06/04/17 08:26 Lymph # (Auto) 0.9 K/uL (1.0-4.3) L 06/04/17 08:26 [place] # (Auto) 0.2 K/uL (0.0-0.8) 06/04/17 08:26 Eos # (Auto) 0.0 K/uL (0.0-0.7) 06/04/17 08:26 Baso # (Auto) 0.0 K/uL (0.0-0.2) 06/04/17 08:26 Differential Comment 06/02/17 21:43 PT 12.7 SECONDS (9.7-12.2) H 06/02/17 21:43 INR 1.1 06/02/17 21:43 APTT 34 SECONDS (21-34) 06/02/17 21:43 Fibrinogen 313 mg/dL (200-400) 06/03/17 12:44 D-Dimer, Quantitative 202 ng/mlDDU (0-243) 06/03/17 11:25 Sodium 140 mmol/L (132-148) 06/04/17 08:26 Potassium 3.7 mmol/L (3.6-5.2) 06/04/17 08:26 Chloride 106 mmol/L (98-107) 06/04/17 08:26 Carbon Dioxide 26 mmol/L (22-30) 06/04/17 08:26 Anion Gap 13 (10-20) 06/04/17 08:26 BUN 7 mg/dL (7-17) 06/04/17 08:26 Creatinine 0.6 mg/dL (0.7-1.2) L 06/04/17 08:26 Est GFR ( Amer) > 60 06/04/17 08:26 Est GFR (Non-Af Amer) > 60 06/04/17 08:26 Random Glucose 77 mg/dL (65-105) 06/04/17 08:26 Calcium 8.9 mg/dl (8.6-10.4) 06/04/17 08:26 Phosphorus 2.9 mg/dL (2.5-4.5) 06/04/17 08:26 Magnesium 1.7 mg/dL (1.6-2.3) 06/04/17 08:26 Total Bilirubin 0.5 mg/dL (0.2-1.3) 06/04/17 08:26 AST 22 U/L (14-36) 06/04/17 08:26 ALT 21 U/L (9-52) 06/04/17 08:26 Alkaline Phosphatase 44 U/L (38-126) 06/04/17 08:26 Lactate Dehydrogenase 319 U/L (313-618) 06/03/17 12:46 Total Protein 7.7 g/dL (6.3-8.3) 06/04/17 08:26 Albumin 3.7 g/dL (3.5-5.0) 06/04/17 08:26 Globulin 3.9 gm/dL (2.2-3.9) 06/04/17 08:26 Albumin/Globulin Ratio 0.9 (1.0-2.1) L 06/04/17 08:26 Lipase 64 U/L (23-300) 06/02/17 21:43 Urine Color Yellow (YELLOW) 06/02/17 21:43 Urine Clarity Hazy (Clear) 06/02/17 21:43 Urine pH 6.0 (5.0-8.0) 06/02/17 21:43 Ur Specific [place] 1.028 (1.003-1.030) 06/02/17 21:43 Urine Protein 1+ mg/dL (NEGATIVE) H 06/02/17 21:43 Urine Glucose (UA) Normal mg/dL (Normal) 06/02/17 21:43 Urine Ketones Trace mg/dL (NEGATIVE) 06/02/17 21:43 Urine Blood Negative (NEGATIVE) 06/02/17 21:43 Urine Nitrate Negative (NEGATIVE) 06/02/17 21:43 Urine Bilirubin Negative (NEGATIVE) 06/02/17 21:43 Urine Urobilinogen Normal mg/dL (0.2-1.0) 06/02/17 21:43 Ur Leukocyte Esterase Neg Pedro/uL (Negative) 06/02/17 21:43 Urine WBC (Auto) 1 /hpf (0-5) 06/02/17 21:43 Urine RBC (Auto) 2 /hpf (0-3) 06/02/17 21:43 Ur Squamous Epith Cells 9 /hpf (0-5) H 06/02/17 21:43 Urine Bacteria Occ (<OCC) H 06/02/17 21:43 Urine HCG, Qual Negative (NEGATIVE) 06/02/17 21:43 Hepatitis A IgM Ab Negative (NEGATIVE) 06/03/17 12:46 Hep Bs Antigen Negative (NEGATIVE) 06/03/17 12:46 Hep B Core IgM Ab Negative (NEGATIVE) 06/03/17 12:46 Hepatitis C Antibody Negative (NEGATIVE) 06/03/17 12:46 HIV 1&2 Antibody Screen Negative (NEGATIVE) 06/03/17 16:58 Blood Type O POSITIVE 06/02/17 21:43 Antibody Screen Negative 06/02/17 21:43 Attending/Attestation - Attestation I have personally seen and examined this patient.: Yes I have fully participated in the care of the patient.: Yes I have reviewed all pertinent clinical information, including history, physical exam and plan: Yes Notes (Text): 06/04/17 18:29 Patient was seen and examined at 12:30 PM 06/04/17 565 B Exam, assessment and plan, and discharge instructions were gone over with the resident Patient understands to schedule follow up with [facility] for coordination of her care: GI for Upper Endoscopy Ortho for history of Left Torn Meniscus Jose A Esquivel D.O.
[2017-06-04 17:30] VITALS: BP 145/83; RESP 20; TEMP 97.9; O2SAT 99
== END 2017-06-04 17:23 | disposition home or self-care (01) | DRG 369 ==
LOC: C.ER 20:55 → C.9E 22:05 → C.5S 22:54
PROVIDERS: ADMIT Family Medicine; ATTEND Family Medicine
DX: K22.6 Gastro-esophageal laceration-hemorrhage syndrome (principal); R04.2 Hemoptysis; D69.6 Thrombocytopenia, unspecified; K76.0 Fatty (change of) liver, not elsewhere classified; K59.00 Constipation, unspecified; Z86.718 Personal history of other venous thrombosis and embolism; M23.207 Derangement of unspecified meniscus due to old tear or injury, left knee

== ENCOUNTER 2017-08-31 11:17 | Emergency (ER) | payer MEDICARE, MEDICAID ==
[2017-08-31 11:20] VITALS: BMI 30.8
[2017-08-31 11:27] VITALS: O2SAT 99
--- NOTE | 2017-08-31 12:05 | C.PDOC ---
History Of Present Illness 47 yo female come in for evaluation of vaginal irritation associated with white thick discharges gradually developed for 1 week, mild discomfort on urination. Otherwise, pt denies fever, chills, recent illness or abx use, denies sore throat, abd. pain, N/V, back pain, hematuria, not sexually acute at present time. Ambulate to Ed for evaluation, not in any apparent distress. Time Seen by Provider: 08/31/17 11:43 Chief Complaint (Nursing): Female Genitourinary History Per: Patient Past Medical History Reviewed: Historical Data, Nursing Documentation, Vital Signs Vital Signs: Last Vital Signs Temp 98.5 F 08/31/17 11:21 Pulse 72 08/31/17 11:21 Resp 17 08/31/17 11:21 BP 115/73 08/31/17 11:21 Pulse Ox 99 08/31/17 12:09 - Medical History PMH: Anemia, Deep Vein Thrombosis (left leg), Peripheral Edema (2012 NO LONGER) Denies: Chronic Kidney Disease Surgical History: Tonsillectomy - [facility] Procedures CYSTOSCOPY NEC (11/28/13) DESTRUCT PERITONEAL TISS (11/21/13) OTH REMOVE BOTH OVARIES/TUBES (11/21/13) OTHER AND UNSPECIFIED TOTAL ABDOMINAL HYSTERECTOMY (11/21/13) PACKED CELL TRANSFUSION (03/05/13) PLICATION OF VENA CAVA (03/05/13) REMOV URETERAL DRAIN (11/28/13) RETROGRADE PYELOGRAM (11/19/13) URETERAL CATHETERIZATION (11/19/13) Family History: States: Unknown Family Hx, Diabetes - Social History Hx Tobacco Use: No Hx Alcohol Use: No Hx Substance Use: No - Immunization History Hx Tetanus Toxoid Vaccination: No Hx Influenza Vaccination: No Hx Pneumococcal Vaccination: No Review Of Systems Except As Marked, All Systems Reviewed And Found Negative. Constitutional: Negative for: Fever, Chills ENT: Negative for: Throat Pain, Throat Swelling Respiratory: Negative for: Cough, Shortness of Breath Gastrointestinal: Negative for: Nausea, Vomiting, Abdominal Pain, Diarrhea Genitourinary: Positive for: Dysuria, Vaginal Discharge. Negative for: Frequency, Incontinence, Hematuria Musculoskeletal: Negative for: Back Pain Skin: Negative for: Rash Neurological: Negative for: Weakness, Numbness, Headache, Dizziness Physical Exam - Physical Exam Appears: Well, Non-toxic, No Acute Distress Skin: Normal Color, Warm, Dry, No Rash Head: Normacephalic Eye(s): bilateral: PERRL Nose: No Flaring, No Discharge Oral Mucosa: Moist, No Drooling Throat: No Erythema, No Drooling Neck: Supple Cardiovascular: Rhythm Regular Respiratory: No Decreased Breath Sounds, No Accessory Muscle Use, No Stridor, No Wheezing Gastrointestinal/Abdominal: Soft, No Tenderness, No Distention, No Guarding, No Rebound Back: Normal Inspection Pelvic: Vaginal Discharge (copious vaginal thick white discharges, mod vulvar erythema and mild edema.), No Cervical Motion Tenderness, No Adnexal Tenderness Extremity: Normal ROM, No Calf Tenderness, No Deformity, No Swelling Neurological/Psych: Oriented x3, Normal Speech ED Course And Treatment O2 Sat by Pulse Oximetry: 99 Pulse Ox Interpretation: Normal Progress Note: On re-evaluation, pt is afebrile, hemodynamicaly stable. Non- toxic. Ambulatory in Ed with stable gait. ENT: no acute findings. Abd: benign , (-) guarding, (-) rebound. back: (-) CVA tenderness. pelvic exam: c/w vulvovaginitgis, candidial. UA results review, appears normal. Pt advised. ref. to f/u with PMD, [facility] in 2-3 days for re-evaluation. return to ED if any worsening or new changes. Disposition Counseled Patient/Family Regarding: Studies Performed, Diagnosis, Need For Followup, Rx Given - Disposition Referrals: Monica Wright MD [Staff Provider] - Disposition: HOME/ ROUTINE Disposition Time: 12:08 Condition: STABLE Additional Instructions: Encourage fluids Take medication as prescribed Follow up with PMD, [facility] in 2-3 days for re-evaluation and further treatment return to ED if any worsening or new changes. Prescriptions: Fluconazole [Diflucan] 200 mg PO DAILY #3 tab Miconazole/Cleanser 17 On Wipe [Monistat 7 Combination Pack] 1 each VG HS #1 kit Instructions: Vulvovaginal Yeast Infection Forms: [facility] (Danish) - Clinical Impression Clinical Impression: Vulvovaginal candidiasis
[2017-08-31 12:08] LABS: HCG,QUALITATIVE URINE NEGATIVE (NEGATIVE)
[2017-08-31 12:14] LABS: SQUAMOUS EPITHIAL 3 /hpf (0-5); URINE BACTERIA RARE (<OCC); URINE BILIRUBIN NEGATIVE (NEGATIVE); URINE BLOOD NEGATIVE (NEGATIVE); URINE CLARITY Clear (Clear); URINE COLOR Yellow (YELLOW); URINE GLUCOSE (UA) NORMAL (Normal); URINE LEUKOCYTE ESTERASE TRACE Leu/uL (Negative); URINE PROTEIN NEGATIVE (NEGATIVE); URINE UROBILINOGEN NORMAL mg/dL (0.2-1.0)
[2017-08-31 12:52] VITALS: BP 105/80; PULSE 74; RESP 20; TEMP 98.1
== END 2017-08-31 12:52 | disposition home or self-care (01) ==
LOC: C.ER 11:17
DX: B37.3 Candidiasis of vulva and vagina (principal)

== ENCOUNTER 2018-03-09 16:46 | Emergency (ER) | payer MEDICARE, MEDICAID ==
[2018-03-09 16:46] VITALS: BMI 30.8
[2018-03-09 16:54] VITALS: BP 114/71; PULSE 90; TEMP 98.9; O2SAT 99
[2018-03-09] MEDS ORDERED: Naproxen 550 mg Tab PO STA (17:34)
[2018-03-09] MEDS ORDERED: Naproxen 550 mg Tab PO ONE (17:42)
--- NOTE | 2018-03-09 18:15 | C.PDOC ---
History Of Present Illness The patient reports that she been experiencing pain to the right knee over the past week, which is worsened with walking and movement. The patient reports that she has a history of meniscus tear in the left knee over the past several months. Denies trauma, fever, numbness, weakness. Time Seen by Provider: 03/09/18 17:14 Chief Complaint (Nursing): Lower Extremity Problem/Injury History Per: Patient History/Exam Limitations: no limitations Onset/Duration Of Symptoms: Persistent Current Symptoms Are (Timing): Still Present Pain Scale Rating Of: 5 - Ankle/Foot Alleviating Factor(s): Ice Therapy, Elevation Past Medical History Vital Signs: Last Vital Signs Temp 98.9 F 03/09/18 16:50 Pulse 90 03/09/18 16:50 Resp 20 03/09/18 16:50 BP 114/71 03/09/18 16:50 Pulse Ox 99 03/09/18 16:50 - Medical History PMH: Anemia, Deep Vein Thrombosis (left leg), Peripheral Edema (2012 NO LONGER) Denies: Chronic Kidney Disease Surgical History: Tonsillectomy - [facility] Procedures CYSTOSCOPY NEC (11/28/13) DESTRUCT PERITONEAL TISS (11/21/13) OTH REMOVE BOTH OVARIES/TUBES (11/21/13) OTHER AND UNSPECIFIED TOTAL ABDOMINAL HYSTERECTOMY (11/21/13) PACKED CELL TRANSFUSION (03/05/13) PLICATION OF VENA CAVA (03/05/13) REMOV URETERAL DRAIN (11/28/13) RETROGRADE PYELOGRAM (11/19/13) URETERAL CATHETERIZATION (11/19/13) Family History: States: Unknown Family Hx, Diabetes - Social History Hx Tobacco Use: No Hx Alcohol Use: No Hx Substance Use: No - Immunization History Hx Tetanus Toxoid Vaccination: No Hx Influenza Vaccination: No Hx Pneumococcal Vaccination: No Review Of Systems Constitutional: Negative for: Fever, Weakness Eyes: Negative for: Eyelid Inflammation, Redness ENT: Negative for: Ear Pain Cardiovascular: Negative for: Chest Pain, Orthopnea Respiratory: Negative for: Cough Gastrointestinal: Negative for: Nausea, Vomiting, Abdominal Pain Genitourinary: Negative for: Dysuria Musculoskeletal: Positive for: Other (knee pain). Negative for: Neck Pain Skin: Negative for: Rash Neurological: Negative for: Weakness, Numbness Physical Exam - Physical Exam Appears: Well, No Acute Distress Skin: Normal Color Head: Atraumatic, Normacephalic Eye(s): bilateral: Normal Inspection Nose: Normal Oral Mucosa: Moist Neck: Normal ROM Extremity: Normal ROM, No Calf Tenderness, Capillary Refill (< 2 sec), No Deformity, Other ((+) minimal swelling and tenderness to the kemi-medial right knee. ) Extremity: Bilateral: Normal Color And Temperature Pulses: Left Dorsalis Pedis: Normal, Right Dorsalis Pedis: Normal Neurological/Psych: Oriented x3, Normal Motor, Normal Sensation Gait: Steady ED Course And Treatment O2 Sat by Pulse Oximetry: 99 (on RA) Pulse Ox Interpretation: Normal Medical Decision Making Medical Decision Making: Xrays of the knee were performed which reveal Osteoarthritis, no fractures. Disposition - Disposition Referrals: Rubens Newell MD [Staff Provider] - [facility] [Outside] Disposition: HOME/ ROUTINE Disposition Time: 18:17 Condition: STABLE Additional Instructions: Follow up with the Orthopedist within 1-2 days. Return if worsened. Prescriptions: Naproxen [Naprosyn] 500 mg PO BID #20 tab Instructions: Osteoarthritis (DC) Forms: [facility] (Uzbek) - Clinical Impression Clinical Impression: Right knee pain, Arthritis
--- NOTE | 2018-03-09 18:15 | RAD ---
Date of service: 03/09/2018 PROCEDURE: Right Knee Radiographs. HISTORY: knee pain, swelling COMPARISON: 02/24/2016 FINDINGS: BONES: Normal. No fracture. JOINTS: Tricompartmental osteoarthritis, most pronounced in the lateral and patellofemoral compartments. No articular erosion. JOINT EFFUSION: None. OTHER FINDINGS: None. IMPRESSION: Tricompartmental osteoarthritis.
[2018-03-09 18:26] VITALS: RESP 18
== END 2018-03-09 18:25 | disposition home or self-care (01) ==
LOC: C.ER 16:46
DX: M25.561 Pain in right knee (principal); M17.11 Unilateral primary osteoarthritis, right knee

== ENCOUNTER 2018-03-13 08:53 | Emergency (ER) | payer MEDICARE, MEDICAID ==
[2018-03-13 08:53] VITALS: BMI 30.8
[2018-03-13 09:14] VITALS: BP 100/66; PULSE 70; RESP 18; TEMP 97.5; O2SAT 96
--- NOTE | 2018-03-13 09:55 | C.PDOC ---
History Of Present Illness 47 year old female presents to the emergency department [facility] with complaints of bleeding from her left ankle. Patient states she did not do anything and does not recall any trauma. She has denies weakness, numbness, or other complaints. denies leg pain. Time Seen by Provider: 03/13/18 09:18 Chief Complaint (Nursing): Lower Extremity Problem/Injury History Per: Patient History/Exam Limitations: no limitations Onset/Duration Of Symptoms: Hrs Current Symptoms Are (Timing): Still Present Past Medical History Reviewed: Historical Data, Nursing Documentation, Vital Signs Vital Signs: Last Vital Signs Temp 97.5 F L 03/13/18 09:04 Pulse 70 03/13/18 09:04 Resp 18 03/13/18 09:04 BP 100/66 03/13/18 09:04 Pulse Ox 96 03/13/18 09:04 - Medical History PMH: Anemia, Deep Vein Thrombosis (left leg), Peripheral Edema (2012 NO LONGER) Denies: Chronic Kidney Disease Surgical History: Tonsillectomy - [facility] Procedures CYSTOSCOPY NEC (11/28/13) DESTRUCT PERITONEAL TISS (11/21/13) OTH REMOVE BOTH OVARIES/TUBES (11/21/13) OTHER AND UNSPECIFIED TOTAL ABDOMINAL HYSTERECTOMY (11/21/13) PACKED CELL TRANSFUSION (03/05/13) PLICATION OF VENA CAVA (03/05/13) REMOV URETERAL DRAIN (11/28/13) RETROGRADE PYELOGRAM (11/19/13) URETERAL CATHETERIZATION (11/19/13) Family History: States: Diabetes - Social History Hx Tobacco Use: No Hx Alcohol Use: No Hx Substance Use: No - Immunization History Hx Tetanus Toxoid Vaccination: No Hx Influenza Vaccination: No Hx Pneumococcal Vaccination: No Review Of Systems Musculoskeletal: Positive for: Other (left ankle bleeding) Neurological: Negative for: Weakness, Numbness Physical Exam - Physical Exam Appears: Non-toxic, No Acute Distress Skin: Warm, Dry Head: Atraumatic, Normacephalic Eye(s): bilateral: Normal Inspection, PERRL, EOMI Neck: Normal Chest: Symmetrical Extremity: Normal ROM, Other (bandage to left ankle, multiple varicose veins upon removal of bandage, quarter-sized area of erythema, no active bleeding.) Pulses: Left Dorsalis Pedis: Normal, Right Dorsalis Pedis: Normal Neurological/Psych: Oriented x3, Normal Speech ED Course And Treatment O2 Sat by Pulse Oximetry: 96 (RA) Pulse Ox Interpretation: Normal Medical Decision Making Medical Decision Making: bleeding from left leg varicose vein; no active bleeding now- pressure dressing applied. Disposition Counseled Patient/Family Regarding: Diagnosis, Need For Followup - Disposition Referrals: Monica Wright MD [Staff Provider] - Justin Casillas Jr., MD [Staff Provider] - Disposition: HOME/ ROUTINE Disposition Time: 09:56 Condition: GOOD Additional Instructions: Please keep dressing on left lower leg until tomorrow. Try to avoid hitting or banging leg against anything. Apply firm pressure for 5-10 minutes and elevate leg if beeding starts again. Follow up with Dr Wright and Dr Casillas. Return to ER for any worse problems. 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 - Scribe Statement The provider has reviewed the documentation as recorded by the Scribe (Martinez Hay) All medical record entries made by the Scribe were at my direction and personally dictated by me. I have reviewed the chart and agree that the record accurately reflects my personal performance of the history, physical exam, medical decision making, and the department course for this patient. I have also personally directed, reviewed, and agree with the discharge instructions and disposition.
== END 2018-03-13 10:10 | disposition home or self-care (01) ==
LOC: C.ER 08:53
DX: I83.892 Varicose veins of left lower extremity with other complications (principal)

== ENCOUNTER 2018-04-01 07:37 | Emergency (ER) | payer MEDICARE, MEDICAID ==
[2018-04-01 07:37] VITALS: BMI 30.8
[2018-04-01 08:00] VITALS: BP 114/79; PULSE 74; RESP 20; TEMP 98.1; O2SAT 98
--- NOTE | 2018-04-01 08:11 | C.PDOC ---
History Of Present Illness 47 y/o female c/o bleeding from varicose vein on left ankle today with no hx trauma. pt has similar episode 03/13. no bleeding at this time. Time Seen by Provider: 04/01/18 07:55 Chief Complaint (Nursing): Lower Extremity Problem/Injury History Per: Patient History/Exam Limitations: no limitations Onset/Duration Of Symptoms: Hrs (1) Current Symptoms Are (Timing): Gone Severity: Mild Past Medical History Reviewed: Historical Data, Nursing Documentation, Vital Signs Vital Signs: Last Vital Signs Temp 98.1 F 04/01/18 07:50 Pulse 74 04/01/18 07:50 Resp 20 04/01/18 07:50 BP 114/79 04/01/18 07:50 Pulse Ox 98 04/01/18 07:50 - Medical History PMH: Anemia, Deep Vein Thrombosis (left leg), Peripheral Edema (2012 NO LONGER) Denies: Chronic Kidney Disease Surgical History: Tonsillectomy - [facility] Procedures CYSTOSCOPY NEC (11/28/13) DESTRUCT PERITONEAL TISS (11/21/13) OTH REMOVE BOTH OVARIES/TUBES (11/21/13) OTHER AND UNSPECIFIED TOTAL ABDOMINAL HYSTERECTOMY (11/21/13) PACKED CELL TRANSFUSION (03/05/13) PLICATION OF VENA CAVA (03/05/13) REMOV URETERAL DRAIN (11/28/13) RETROGRADE PYELOGRAM (11/19/13) URETERAL CATHETERIZATION (11/19/13) Family History: States: Unknown Family Hx, Diabetes - Social History Hx Tobacco Use: No Hx Alcohol Use: No Hx Substance Use: No - Immunization History Hx Tetanus Toxoid Vaccination: No Hx Influenza Vaccination: No Hx Pneumococcal Vaccination: No Review Of Systems Constitutional: Negative for: Fever, Chills Skin: Positive for: Other (bleeding from left varicose vein ) Physical Exam - Physical Exam Appears: Non-toxic, No Acute Distress Skin: Warm, Dry Head: Atraumatic, Normacephalic Eye(s): bilateral: Normal Inspection Oral Mucosa: Moist Neck: Supple Chest: Symmetrical, No Deformity, No Tenderness Cardiovascular: Rhythm Regular, No Murmur Respiratory: Normal Breath Sounds, No Rales, No Rhonchi, No Wheezing Extremity: Normal ROM, Capillary Refill (less than 2 seconds ) Neurological/Psych: Oriented x3, Normal Speech, Normal Cognition ED Course And Treatment O2 Sat by Pulse Oximetry: 98 (on RA) Pulse Ox Interpretation: Normal Medical Decision Making Medical Decision Making: pt with hx bleeding from varicose vein left medial ankle, no activr bleerding. dressing applied. f/u Lucía Valente Disposition Counseled Patient/Family Regarding: Diagnosis, Need For Followup - Disposition Referrals: Justin Valente Jr., MD [Staff Provider] - Disposition: HOME/ ROUTINE Disposition Time: 08:33 Condition: GOOD Additional Instructions: Avoid trauma or injury to left ankle. Follow up with Dr Valente. If bleeding starts again, apply pressure. Return to ER for any worse symptoms,. Instructions: Varicose Veins (DC) Forms: [facility] (Persian), General Discharge Instructions - Clinical Impression Clinical Impression: Bleeding from varicose veins of left lower extremity
== END 2018-04-01 08:35 | disposition home or self-care (01) ==
LOC: C.ER 07:37
DX: I83.892 Varicose veins of left lower extremity with other complications (principal)

== ENCOUNTER 2018-07-06 12:16 | Outpatient (CLI) | payer MEDICARE, MEDICAID | END 2018-07-06 12:17 | disposition home or self-care (01) | LOC: C.MAMMO 12:16 | DX: Z12.31 Encounter for screening mammogram for malignant neoplasm of breast (principal) ==

== ENCOUNTER 2018-07-15 14:44 | Emergency (ER) | payer MEDICARE, MEDICAID ==
[2018-07-15 14:44] VITALS: BMI 30.8
[2018-07-15 15:27] VITALS: BP 118/78; PULSE 77; RESP 16; TEMP 98.5; O2SAT 95
--- NOTE | 2018-07-15 16:51 | C.PDOC ---
History Of Present Illness 48 y/o female presents to the ER complaining of hyperpigmentation and pruritis to the left antecubital fossa. Patient states that the symptoms began after she used band aid. Patient is also complaining of chronic left hip pain exacerbation. She notes that the pain is usually intermittent.Denies having trauma, falls,injuries, weakness, and numbness. Time Seen by Provider: 07/15/18 15:21 Chief Complaint (Nursing): Upper Extremity Problem/Injury History Per: Patient History/Exam Limitations: no limitations Onset/Duration Of Symptoms: Days Current Symptoms Are (Timing): Still Present Severity: Moderate Past Medical History Reviewed: Historical Data, Nursing Documentation, Vital Signs Vital Signs: Last Vital Signs Temp 98.5 F 07/15/18 15:26 Pulse 77 07/15/18 15:26 Resp 16 07/15/18 15:26 BP 118/78 07/15/18 15:26 Pulse Ox 95 07/15/18 15:26 - Medical History PMH: Anemia, Deep Vein Thrombosis (left leg), Peripheral Edema (2012 NO LONGER) Denies: Chronic Kidney Disease Surgical History: Tonsillectomy - [facility] Procedures CYSTOSCOPY NEC (11/28/13) DESTRUCT PERITONEAL TISS (11/21/13) OTH REMOVE BOTH OVARIES/TUBES (11/21/13) OTHER AND UNSPECIFIED TOTAL ABDOMINAL HYSTERECTOMY (11/21/13) PACKED CELL TRANSFUSION (03/05/13) PLICATION OF VENA CAVA (03/05/13) REMOV URETERAL DRAIN (11/28/13) RETROGRADE PYELOGRAM (11/19/13) URETERAL CATHETERIZATION (11/19/13) Family History: States: Diabetes - Social History Hx Tobacco Use: No Hx Alcohol Use: No Hx Substance Use: No - Immunization History Hx Tetanus Toxoid Vaccination: No Hx Influenza Vaccination: No Hx Pneumococcal Vaccination: No Review Of Systems Except As Marked, All Systems Reviewed And Found Negative. Constitutional: Negative for: Fever, Chills Musculoskeletal: Positive for: Other (hip pain) Skin: Positive for: Other (hyperpigmentation to left antecubital fossa) Neurological: Negative for: Weakness, Numbness Physical Exam - Physical Exam Appears: Non-toxic, No Acute Distress Skin: Normal Color, Warm, Dry, Other (some scaling and hyperpigmentation to left antecubital seferino, no open sores, no erythema to left antecubital fossa, no erythema, erythema, brusing, and/or discoloration to left hip) Head: Atraumatic, Normacephalic Eye(s): bilateral: Normal Inspection Nose: Normal Oral Mucosa: Moist Neck: Supple Chest: Symmetrical Extremity: Normal ROM (normal ROM in left elbow and hips), Tenderness (mild tenderness to left lateral hip), No Swelling Pulses: Left Brachial: Normal, Right Brachial: Normal, Left Radial: Normal, Right Radial: Normal Neurological/Psych: Oriented x3, Normal Speech, Normal Motor, Normal Sensation Gait: Steady ED Course And Treatment O2 Sat by Pulse Oximetry: 95 (RA) Pulse Ox Interpretation: Normal - Other Rad X-Ray-Hip/Pelvis X-Ray: Viewed By Me, Read By Radiologist Interpretation: Indication: pain. Left hip with pelvis radiographs, two views. Comparison: None available. Findings: Degenerative changes with osteophyte formation bilateral pelvis. Joint space narrowing bilateral hips. No acute displaced fracture or dislocation identified. Sacroiliac joints appear intact. Mild constipation. Soft tissues appear unremarkable. No evidence of radiopaque foreign body. Impression: Degenerative changes. No acute displaced fracture or dislocation evident. If high clinical index of suspicion, suggest cross-se ctional imaging for further evaluation. Otherwise, if symptoms persist or if there is continued clinical concern, x-ray follow-up in 7-10 days should be considered. Progress Note: X-Ray-Left Hip ordered and reviewed. Patient has been discharged and instructed to follow up in clinic. Disposition - Disposition Referrals: Monica Wright MD [Staff Provider] - Disposition: HOME/ ROUTINE Disposition Time: 16:49 Condition: STABLE Additional Instructions: Follow up in Clinic within 1-2 days. Return to ED if feel worse. 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 - Scribe Statement The provider has reviewed the documentation as recorded by the Geo Khanna Provider Attestation All medical record entries made by the Geo were at my direction and personally dictated by me. I have reviewed the chart and agree that the record accurately reflects my personal performance of the history, physical exam, medical decision making, and the department course for this patient. I have also personally directed, reviewed, and agree with the discharge instructions and disposition.
--- NOTE | 2018-07-15 18:46 | RAD ---
Indication: pain Left hip with pelvis radiographs, two views. Comparison: None available Findings: Degenerative changes with osteophyte formation bilateral pelvis. Joint space narrowing bilateral hips. No acute displaced fracture or dislocation identified. Sacroiliac joints appear intact. Mild constipation. Soft tissues appear unremarkable. No evidence of radiopaque foreign body. Impression: Degenerative changes. No acute displaced fracture or dislocation evident. If high clinical index of suspicion, suggest cross-sectional imaging for further evaluation. Otherwise, if symptoms persist or if there is continued clinical concern, x-ray follow-up in 7-10 days should be considered.
== END 2018-07-15 17:22 | disposition home or self-care (01) ==
LOC: C.ER 14:44
DX: M25.552 Pain in left hip (principal); L30.9 Dermatitis, unspecified; Z86.718 Personal history of other venous thrombosis and embolism